=== PATIENT | female | born 2000 | race Caucasian/White ===

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

== ENCOUNTER 2020-01-19 19:41 | Emergency (ER) | payer MEDICAID ==
[~2020-01-19] VITALS: Ht 162.6 cm; Wt 68.0 kg
[2020-01-19 20:13] LABS: BASOPHILS % (AUTO) 1 % (0-10); EOSINOPHILS # (AUTO) 0.2 10^3/uL (0.0-0.3); EOSINOPHILS % (AUTO) 2 % (0-10); HEMATOCRIT 41 % (35-52); HEMOGLOBIN 14.2 G/DL (11.5-16.0); LYMPHOCYTES # (AUTO) 2.9 X 10^3 (1.0-4.0); LYMPHOCYTES % (AUTO) 37 % (12-44); MEAN CORPUSCULAR HEMOGLOBIN 29 PG (25-34); MEAN CORPUSCULAR HGB CONC 35 G/DL (32-36); MEAN CORPUSCULAR VOLUME 84 FL (80-99); MEAN PLATELET VOLUME 9.3 FL (7.4-10.4); MONOCYTES # (AUTO) 0.6 X 10^3 (0.0-1.0); MONOCYTES % (AUTO) 7 % (0-12); NEUTROPHILS # (AUTO) 4.1 X 10^3 (1.8-7.8); NEUTROPHILS % (AUTO) 53 % (42-75); PLATELET COUNT 251 10^3/uL (130-400); RED CELL DISTRIBUTION WIDTH 12.6 % (10.0-14.5); WHITE BLOOD COUNT 7.7 10^3/uL (4.3-11.0)
[2020-01-19] MEDS ORDERED: ONDANSETRON 4 MG/2 ML (SDV) Z0FRAN IVP ONE (20:15)
[2020-01-19 20:27] LABS: BILIRUBIN,URINE NEGATIVE (NEGATIVE); CLARITY,URINE CLEAR; COLOR,URINE YELLOW; GLUCOSE, URINE (UA) NEGATIVE (NEGATIVE); KETONES,URINE TRACE (NEGATIVE); LEUKOCYTE ESTERASE ,URINE TRACE (NEGATIVE); NITRITE,URINE NEGATIVE (NEGATIVE); PROTEIN,URINE NEGATIVE (NEGATIVE)
[2020-01-19 20:34] LABS: BACTERIA,URINE TRACE /HPF; RBC,URINE RARE /HPF
--- NOTE | 2020-01-19 20:44 | ED Abdominal Pain ---
General Chief Complaint: Abdominal/GI Problems Stated Complaint: DIZZINESS, NAUSEA, CHILLS Nursing Triage Note: Pt ambulates to room #7 with c/o abd discomfort, nausea, chills, et dizziness. Pt reports approx 1.5hr ago, she began to experience discomfort. Pt reports she passed a bowl movement shortly after discomfort began. A&OX4. Sepsis Screen: No Definite Risk Source of Information: Patient Exam Limitations: No Limitations History of Present Illness Date Seen by Provider: Jan 19, 2020 Time Seen by Provider: 19:49 Initial Comments This 19 year old young lady presents to the ER with complaints of RUQ and epigastric pain that started in our to after eating pizza tonight. She went to the restroom have a bowel movement hoping that would help. The bowel movement was relatively normal but did not relieve her pain. She felt a little dizzy during the bowel movement. She also complains of some mild nausea. She has not had any prior episodes. She felt a little chilled but has no fever. She denies any urinary symptoms. Reports LMP was 2 weeks ago. Allergies and Home Medications Allergies Coded Allergies: promethazine (Verified Allergy, Mild, 10/25/14) Dysphoria levetiracetam (Unverified Adverse Reaction, Mild, rash, 11/08/13) sertraline (Unverified Adverse Reaction, Mild, rash, 11/08/13) Home Medications Oxcarbazepine 600 Mg Tablet, 600 MG PO DAILY, (Reported) Oxcarbazepine 600 Mg Tablet, 1,200 MG PO HS, (Reported) Patient Home Medication List Home Medication List Reviewed: Yes Review of Systems Review of Systems Constitutional: see HPI, chills EENTM: No Symptoms Reported Respiratory: No Symptoms Reported Cardiovascular: See HPI, Other (dizziness) Gastrointestinal: See HPI Genitourinary: No Symptoms Reported Musculoskeletal: no symptoms reported Skin: no symptoms reported Psychiatric/Neurological: No Symptoms Reported Endocrine: No Symptoms Reported Hematologic/Lymphatic: No Symptoms Reported Past Bbvbick-Xkhtod-Uhecpc Hx Past Med/Social Hx: Reviewed Nursing Past Med/Soc Hx Patient Social History Alcohol Use: Denies Use Recreational Drug Use: No Smoking Status: Never a Smoker 2nd Hand Smoke Exposure: Yes Recent Foreign Travel: No Contact w/Someone Who Travel: No Recent Infectious Disease Expo: No Recent Hopitalizations: No Immunizations Up To Date Tetanus Booster (TDap): Less than 5yrs PED Vaccines UTD: Yes Seasonal Allergies Seasonal Allergies: Yes Past Medical History Surgeries: Yes (BMT'S) Ear Surgery Respiratory: No Cardiac: No Neurological: Yes Seizure Disorder Last Menstrual Period: Jan 05, 2020 Reproductive Disorders: No Female Reproductive Disorders: Denies Sexually Transmitted Disease: No HIV/AIDS: No Genitourinary: Yes UTI-Chronic Gastrointestinal: No Musculoskeletal: Yes (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 ) Back Injury Endocrine: No HEENT: Yes Chronic Ear Infection Cancer: No Psychosocial: Yes (OCD, GENERALIZED ANXIETY DISORDER) Anxiety Integumentary: No Blood Disorders: No Family Medical History No Pertinent Family Hx Physical Exam Vital Signs Vital Signs - First Documented 01/19/20 19:50 Temp 36.7 Pulse 87 Resp 18 B/P (MAP) 132/74 (93) Pulse Ox 100 O2 Delivery Room Air Capillary Refill : Less Than 3 Seconds Height/Weight/BMI Height: 5'3.00" Weight: 140lbs. 0oz. [id number]; 25.00 BMI Method:Actual General Appearance: WD/WN, no apparent distress HEENT: PERRL/EOMI, normal ENT inspection, other (oropharynx somewhat dry) Neck: normal inspection Respiratory: lungs clear, normal breath sounds, no respiratory distress, no accessory muscle use Cardiovascular: regular rate, rhythm, no edema, no murmur Gastrointestinal: normal bowel sounds, soft, tenderness (Quigley right upper quadrant. 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 II-XII nml as tested, no motor/sensory deficits, alert, normal mood/affect, oriented x 3 Skin: normal color, warm/dry Progress/Results/Core Measures Results/Orders Lab Results Laboratory Tests Test 01/19/20 20:05 01/19/20 20:20 Range/Units White Blood Count 7.7 4.3-11.0 10^3/uL Red Blood Count 4.88 4.35-5.85 10^6/uL Hemoglobin 14.2 11.5-16.0 G/DL Hematocrit 41 35-52 % Mean Corpuscular Volume 84 80-99 FL Mean Corpuscular Hemoglobin 29 25-34 PG Mean Corpuscular Hemoglobin Concent 35 32-36 G/DL Red Cell Distribution Width 12.6 10.0-14.5 % Platelet Count 251 130-400 10^3/uL Mean Platelet Volume 9.3 7.4-10.4 FL Neutrophils (%) (Auto) 53 42-75 % Lymphocytes (%) (Auto) 37 12-44 % Monocytes (%) (Auto) 7 0-12 % Eosinophils (%) (Auto) 2 0-10 % Basophils (%) (Auto) 1 0-10 % Neutrophils # (Auto) 4.1 1.8-7.8 X 10^3 Lymphocytes # (Auto) 2.9 1.0-4.0 X 10^3 Monocytes # (Auto) 0.6 0.0-1.0 X 10^3 Eosinophils # (Auto) 0.2 0.0-0.3 10^3/uL Basophils # (Auto) 0.0 0.0-0.1 10^3/uL Sodium Level 139 135-145 MMOL/L Potassium Level 3.8 3.6-5.0 MMOL/L Chloride Level 106 98-107 MMOL/L Carbon Dioxide Level 22 21-32 MMOL/L Anion Gap 11 5-14 MMOL/L Blood Urea Nitrogen 10 7-18 MG/DL Creatinine 0.81 0.60-1.30 MG/DL Estimat Glomerular Filtration Rate > 60 BUN/Creatinine Ratio 12 Glucose Level 97 70-105 MG/DL Calcium Level 9.6 8.5-10.1 MG/DL Corrected Calcium 8.5-10.1 MG/DL Total Bilirubin 0.3 0.1-1.0 MG/DL Aspartate Amino Transf (AST/SGOT) 22 5-34 U/L Alanine Aminotransferase (ALT/SGPT) 13 0-55 U/L Alkaline Phosphatase 76 40-136 U/L C-Reactive Protein High Sensitivity 0.04 0.00-0.50 MG/DL Total Protein 8.1 6.4-8.2 GM/DL Albumin 4.6 H 3.2-4.5 GM/DL Lipase 35 8-78 U/L Serum Test, Qualitative NEGATIVE NEGATIVE Urine Color YELLOW Urine Clarity CLEAR Urine pH 6.0 5-9 Urine Specific [place] 1.025 H 1.016-1.022 Urine Protein NEGATIVE NEGATIVE Urine Glucose (UA) NEGATIVE NEGATIVE Urine Ketones TRACE H NEGATIVE Urine Nitrite NEGATIVE NEGATIVE Urine Bilirubin NEGATIVE NEGATIVE Urine Urobilinogen 0.2 < = 1.0 MG/DL Urine Leukocyte Esterase TRACE H NEGATIVE Urine RBC (Auto) NEGATIVE NEGATIVE Urine RBC RARE /HPF Urine WBC 2-5 /HPF Urine Squamous Epithelial Cells 5-10 /HPF Urine Crystals NONE /LPF Urine Bacteria TRACE /HPF Urine Casts NONE /LPF Urine Mucus NEGATIVE /LPF Urine Culture Indicated YES My Orders Orders - IRVIN MCLEAN MD Ua Culture If Indicated (01/19/20 19:49) Cbc With Automated Diff (01/19/20 20:02) Comprehensive Metabolic Panel (01/19/20 20:02) Hs C Reactive Protein (01/19/20 20:02) Hcg,Qualitative Serum (01/19/20 20:02) Lipase (01/19/20 20:02) Ondansetron Injection (Zofran Injectio (01/19/20 20:15) Urine Culture (01/19/20 20:20) Ketorolac Injection (Toradol Injection) (01/19/20 21:15) Medications Given in ED Current Medications Medications Dose Ordered Sig/Vick Route Start Time Stop Time Status Last Admin Dose Admin Ketorolac Tromethamine 15 mg ONCE ONCE IVP 01/19/20 21:15 01/19/20 21:16 DC 01/19/20 21:14 15 MG Ondansetron HCl 4 mg ONCE ONCE IVP 01/19/20 20:15 01/19/20 20:16 DC 01/19/20 20:13 4 MG Vital Signs/I&O 01/19/20 19:50 Temp 36.7 Pulse 87 Resp 18 B/P (MAP) 132/74 (93) Pulse Ox 100 O2 Delivery Room Air Blood Pressure Mean: 93 Progress Progress Note #1: Time: 20:46 Progress Note Patient was seen and examined upon arrival. She is being treated with Zofran and IV fluids. Progress Note #2: Progress Note Workup was unremarkable. Symptoms improved but she had a little bit of residual pain. Toradol was given before discharge. Departure Impression Primary Impression: Right upper quadrant pain Additional Impression: Nausea Disposition: 01 HOME, SELF-CARE Condition: Improved Departure-Patient Inst. Decision time for Depature: 21:09 Referrals: NHAN LOWE MD (PCP/Family) Primary Care Physician Patient Instructions: Severe Abdominal Pain, Adult (DC) Add. Discharge Instructions: Stick with a clear liquid diet this evening. Tomorrow you may gradually advance your diet with small quantities of bland food. Eat a low fat, low oil diet until follow-up with your doctor. Follow-up with your Dr. as soon as possible and discuss the possibility of a gallbladder ultrasound. Return to the ER if you have worsening symptoms including escalating pain, vomiting, fever, etc. For pain you may take Tylenol (acetaminophen) up to 1000 mg every 6 hours as needed. If you need to return to the emergency room for right upper belly pain outside of business hours, consider returning to an ER that can provide 24-hour ultrasound services such as one of the [facility]. All discharge instructions reviewed with patient and/or family. Voiced understanding. Copy Copies To 1: NHAN LOWE MD, JOSHUA T MD Jan 19, 2020 20:44
[2020-01-19 20:47] LABS: ALANINE AMINOTRANSFERASE 13 U/L (0-55); ALBUMIN 4.6 GM/DL (3.2-4.5); ALKALINE PHOSPHATASE 76 U/L (40-136); BILIRUBIN,TOTAL 0.3 MG/DL (0.1-1.0); BUN/CREATININE RATIO 12; CALCIUM 9.6 MG/DL (8.5-10.1); CARBON DIOXIDE 22 MMOL/L (21-32); CHLORIDE 106 MMOL/L (98-107); CREATININE SERUM 0.81 MG/DL (0.60-1.30); GFR ESTIMATED > 60; GLUCOSE 97 MG/DL (70-105); LIPASE 35 U/L (8-78); POTASSIUM 3.8 MMOL/L (3.6-5.0); SODIUM 139 MMOL/L (135-145); TOTAL PROTEIN 8.1 GM/DL (6.4-8.2)
[2020-01-19] MEDS ORDERED: KETOROLAC 30 MG/ML VIAL IVP ONE (21:15)
[2020-01-19 21:19] VITALS: BP 113/79
== END 2020-01-19 21:19 | disposition home or self-care (01) ==
LOC: EDUNIT# 19:41 → ER 19:43
DX: R10.11 Right upper quadrant pain (principal); R11.2 Nausea with vomiting, unspecified; G40.909 Epilepsy, unspecified, not intractable, without status epilepticus; F42.9 Obsessive-compulsive disorder, unspecified; F41.1 Generalized anxiety disorder; Z88.8 Allergy status to other drugs, medicaments and biological substances
CPT/HCPCS: 36415; 80053; 81000; 83690; 84703; 85025; 86141; 87088

== ENCOUNTER → 2020-02-02 | Outpatient (CLI) | payer MEDICAID ==
[~2020-02-02] MED LIST changes: +CATHETER FLUSH 10 ML SYR IV PRN
--- NOTE | 2020-02-02 14:21 | Diagnostic Imaging Report ---
INDICATION: Abdominal pain and bloating. TECHNIQUE: The patient was administered 5.3 mCi technetium 99m Choletec intravenously and imaging over the abdomen was performed. At 1 hour 8 ounces of Ensure was ingested and a gallbladder ejection fraction was calculated. There is homogeneous uptake of activity by the liver with prompt excretion of activity into the gallbladder and common duct. There is normal passage of activity into the small bowel. Gallbladder ejection fraction is abnormally low at 12%. Normal values are 30% or greater. IMPRESSION: 1. Patent cystic duct and common bile duct. 2. Low gallbladder ejection fraction of 12%. Dictated by: Dictated on workstation # [id number]
== END ==
LOC: CARD 11:10
PROVIDERS: ATTEND Surgery
DX: R10.9 Unspecified abdominal pain (principal); R14.0 Abdominal distension (gaseous); R11.2 Nausea with vomiting, unspecified
CPT/HCPCS: 78227; A9537

== ENCOUNTER 2020-06-19 00:29 | Emergency (ER) | payer MEDICAID ==
[~2020-06-19] VITALS: Ht 162.6 cm; Wt 68.0 kg
[~2020-06-19 00:29] MED LIST changes: -CATHETER FLUSH 10 ML SYR IV PRN
[2020-06-19 00:52] LABS: BILIRUBIN,URINE NEGATIVE (NEGATIVE); CLARITY,URINE SL CLOUDY; COLOR,URINE YELLOW; GLUCOSE, URINE (UA) NEGATIVE (NEGATIVE); KETONES,URINE NEGATIVE (NEGATIVE); LEUKOCYTE ESTERASE ,URINE NEGATIVE (NEGATIVE); NITRITE,URINE NEGATIVE (NEGATIVE); PH,URINE 6.5 (5-9); PROTEIN,URINE TRACE (NEGATIVE)
[2020-06-19 01:03] LABS: BACTERIA,URINE TRACE /HPF
[2020-06-19] MEDS ORDERED: ONDANSETRON 4 MG/2 ML (SDV) Z0FRAN ONE (01:09)
[2020-06-19] MEDS ORDERED: ONDANSETRON 4 MG/2 ML (SDV) Z0FRAN IVP ONE (01:15)
[2020-06-19 01:16] LABS: AMPHETAMINE SCREEN, URINE NEGATIVE (NEGATIVE); BARBITURATE SCREEN URINE NEGATIVE (NEGATIVE); BENZODIAZEPINES SCREEN URINE NEGATIVE (NEGATIVE); CANNABINOID SCREEN, URINE NEGATIVE (NEGATIVE); COCAINE SCREEN URINE NEGATIVE (NEGATIVE); METHADONE STAT NEGATIVE (NEGATIVE); METHAMPHETAMINE SCREEN URINE S NEGATIVE (NEGATIVE); OPIATE SCREEN URINE NEGATIVE (NEGATIVE); OXYCODONE STAT NEGATIVE (NEGATIVE); PROPOXYPHENE STAT NEGATIVE (NEGATIVE); TRICYCLIC ANTIDEPRESSANTS SCRE NEGATIVE (NEGATIVE)
--- NOTE | 2020-06-19 01:38 | ED General ---
General Chief Complaint: Neurological Problems Stated Complaint: SEIZURE Nursing Triage Note: brought in by [facility] c/o approx. 15sec. seizure. pt with hx seizures Source of Information: Patient, EMS History of Present Illness Date Seen by Provider: Jun 19, 2020 Time Seen by Provider: 00:28 Initial Comments PT ARRIVES VIA EMS FROM HOME PT HAD A 15 SECOND SEIZURE, WITNESSED BY BOYFRIEND. PT HAS LONGSTANDING HISTORY OF SEIZURES, AND LAST SEIZURE WAS 2 YEARS AGO. DENIES ANY MISSED DOSES OF MEDICATIONS AND NO CHANGES IN MEDICATIONS PT STATES SHE WAS ASLEEP IN BED WHEN SEIZURE OCCURRED, BUT HER BOYFRIEND SAW IT. PT DENIES ANY INJURY FROM THE SEIZURE SEIZURE IS NO DIFFERENT FROM PREVIOUS SEIZURES. DID BECOME NAUSEATED AND VOMITED AFTER THE SEIZURE, IS TYPICAL FOR HER. IS STILL NAUSEATED. PT THEN STATES SHE IS NOT HERE FOR THE SEIZURE, AND IS NOT CONCERNED ABOUT IT. CALLED EMS BECAUSE SHE WANTED TO BE TESTED FOR COVID-19. PT STATES SHE HAS HAD NASAL CONGESTION FOR THE LAST 2 DAYS STATES IMMEDIATELY AFTER THE SEIZURE SHE HAD TEMP OF 100, BUT HAS NOT HAD FEVER AT ANY OTHER TIME HAS NOT TAKEN ANYTHING FOR FEVER. NO COUGH OR SHORTNESS OF BREATH NO SORE THROAT NO LOSS OF TASTE OR SMELL NO GI SYMPTOMS PRIOR TO SEIZURE. NO HEADACHE NO BODY ACHES NO KNOWN SICK CONTACTS OR EXPOSURE TO COVID-19 PT DOES NOT WORK. LMP 4 WEEKS AGO. NORMAL. NO CONTROL PCP: DR. Chacorta LOWE NEUROLOGIST AT [facility] Allergies and Home Medications Allergies Coded Allergies: promethazine (Verified Allergy, Mild, 10/25/14) Dysphoria levetiracetam (Unverified Adverse Reaction, Mild, rash, 11/08/13) sertraline (Unverified Adverse Reaction, Mild, rash, 11/08/13) Home Medications Oxcarbazepine 600 Mg Tablet, 600 MG PO DAILY, (Reported) Oxcarbazepine 600 Mg Tablet, 1,200 MG PO HS, (Reported) Patient Home Medication List Home Medication List Reviewed: Yes Review of Systems Review of Systems Constitutional: see HPI, fever EENTM: see HPI, nose congestion; No ear pain, No throat pain Respiratory: no symptoms reported; No cough, No short of breath Cardiovascular: no symptoms reported Gastrointestinal: see HPI; No abdominal pain, No diarrhea; nausea, vomiting Genitourinary: no symptoms reported : No LMP: May 21, 2020 Musculoskeletal: no symptoms reported Skin: no symptoms reported Psychiatric/Neurological: See HPI; Denies Headache, Denies Numbness, Denies Paresthesia; Seizure; Denies Tingling, Denies Weakness Hematologic/Lymphatic: No Symptoms Reported Immunological/Allergic: no symptoms reported Past Pqprvfl-Kbxqri-Qfvsxe Hx Past Med/Social Hx: Reviewed and Corrections made Patient Social History Alcohol Use: Denies Use Recreational Drug Use: No Smoking Status: Never a Smoker 2nd Hand Smoke Exposure: Yes Recent Foreign Travel: No Contact w/Someone Who Travel: No Recent Infectious Disease Expo: No Recent Hopitalizations: No Immunizations Up To Date Tetanus Booster (TDap): Less than 5yrs PED Vaccines UTD: Yes Seasonal Allergies Seasonal Allergies: Yes Past Medical History Surgeries: Yes (BMT'S) Ear Surgery, Gallbladder Respiratory: No Cardiac: No Neurological: Yes Seizure Disorder Reproductive Disorders: No Female Reproductive Disorders: Denies Sexually Transmitted Disease: No HIV/AIDS: No Genitourinary: Yes UTI-Chronic Gastrointestinal: Yes (S/P CHOLECYSTECTOMY) Gall Bladder Disease Musculoskeletal: Yes (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 ) Back Injury Endocrine: No HEENT: Yes (S/P BMT'S) Chronic Ear Infection Cancer: No Psychosocial: Yes (OCD, GENERALIZED ANXIETY DISORDER;"BAD ANGER PROBLEMS" ) Anxiety Integumentary: No Blood Disorders: No Family Medical History No Pertinent Family Hx Physical Exam Vital Signs Vital Signs - First Documented 06/19/20 00:30 Temp 36.5 Pulse 104 Resp 20 B/P (MAP) 118/73 O2 Delivery Room Air Capillary Refill : Height, Weight, BMI Height: 5'3.00" Weight: 140lbs. 0oz. 63.740185oc; 25.00 BMI Method:Actual General Appearance: No Apparent Distress, WD/WN, Other (DOES NOT APPEAR POST- ICTAL. PT SITTING UP, AWAKE, ALERT, TALKING. SPEECH CLEAR. ) HEENT: PERRL/EOMI, Pharynx Normal, Other (TM'S SCLEROTIC. 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 Norm as Tested Skin: Normal Color, Warm/Dry; No Rash Progress/Results/Core Measures Suspected Sepsis SIRS Temperature: Pulse: Respiratory Rate: Blood Pressure / Mean: Results/Orders Lab Results Laboratory Tests Test 06/19/20 00:33 06/19/20 00:40 Range/Units Coronavirus 2019 (ANGELITA) Negative Negative Monoscreen NEGATIVE NEGATIVE Urine Color YELLOW Urine Clarity SL CLOUDY Urine pH 6.5 5-9 Urine Specific [place] >=1.030 1.016-1.022 Urine Protein TRACE H NEGATIVE Urine Glucose (UA) NEGATIVE NEGATIVE Urine Ketones NEGATIVE NEGATIVE Urine Nitrite NEGATIVE NEGATIVE Urine Bilirubin NEGATIVE NEGATIVE Urine Urobilinogen 0.2 < = 1.0 MG/DL Urine Leukocyte Esterase NEGATIVE NEGATIVE Urine RBC (Auto) NEGATIVE NEGATIVE Urine RBC NONE /HPF Urine WBC NONE /HPF Urine Squamous Epithelial Cells 10-25 H /HPF Urine Crystals NONE /LPF Urine Bacteria TRACE /HPF Urine Casts NONE /LPF Urine Mucus LARGE H /LPF Urine Culture Indicated NO Urine Opiates Screen NEGATIVE NEGATIVE Urine Oxycodone Screen NEGATIVE NEGATIVE Urine Methadone Screen NEGATIVE NEGATIVE Urine Propoxyphene Screen NEGATIVE NEGATIVE Urine Barbiturates Screen NEGATIVE NEGATIVE Ur Tricyclic Antidepressants Screen NEGATIVE NEGATIVE Urine Phencyclidine Screen NEGATIVE NEGATIVE Urine Amphetamines Screen NEGATIVE NEGATIVE Urine Methamphetamines Screen NEGATIVE NEGATIVE Urine Benzodiazepines Screen NEGATIVE NEGATIVE Urine Cocaine Screen NEGATIVE NEGATIVE Urine Cannabinoids Screen NEGATIVE NEGATIVE Group A Streptococcus Screen NEGATIVE NEGATIVE Micro Results Microbiology 06/19/20 Influenza Types A,B Antigen (ACE) - Final, Complete My Orders Orders - VANESSA EISENBERG DO Urine Bedside (06/19/20 00:38) Monitor-Rhythm Ecg Trace Only (06/19/20 00:38) Drug Screen Stat (Urine) (06/19/20 00:38) Monotest (06/19/20 00:38) Rapid Strep A Screen (06/19/20 00:38) Ua Culture If Indicated (06/19/20 00:38) Influenza A And B Antigens (06/19/20 00:38) Coronavirus Sars-Cov-2 So 2018 (06/19/20 00:38) Covid 19 Inhouse Test (06/19/20 00:38) Ondansetron Injection (Zofran Injectio (06/19/20 01:15) Ondansetron Injection (Zofran Injectio (06/19/20 01:09) Medications Given in ED Current Medications Medications Dose Ordered Sig/Vick Route Start Time Stop Time Status Last Admin Dose Admin Ondansetron HCl 4 mg ONCE ONCE IVP 06/19/20 01:15 06/19/20 01:16 DC 06/19/20 01:13 4 MG Vital Signs/I&O 06/19/20 00:30 Temp 36.5 Pulse 104 Resp 20 B/P (MAP) 118/73 O2 Delivery Room Air Capillary Refill : Progress Note : Progress Note PLACED IN ISOLATION ROOM PPE WORN AT ALL TIMES COVID-19 TESTING PERFORMED PT ADVISED OF NEED FOR QUARANTINE UNEVENTFUL ER STAY PT SLEPT THROUGH MOST OF ER STAY. PT AMBULATES OUT OF ER ON HER OWN WITHOUT DIFFICULTY Departure Impression Primary Impression: Person under investigation for COVID-19 Additional Impression: Seizure disorder Disposition: HOME, SELF-CARE Condition: Stable Departure-Patient Inst. Referrals: NHAN LOWE MD (PCP/Family) Primary Care Physician Patient Instructions: Coronavirus Disease 2019 (COVID-19) (DC), Preventing the Spread of an Infectious Disease, Seizures, Adult (DC) Add. Discharge Instructions: NO DRIVING FOR A MINIMUM OF 6 MONTHS AND NEED CLEARANCE FROM YOUR NEUROLOGIST CONTINUE YOUR CURRENT MEDICATIONS PRESCRIBED TYLENOL AND MOTRIN NEEDED FOR PAIN OR FEVER LOTS OF CLEAR LIQUIDS OVER THE COUNTER MEDICATIONS SUCH CLARITIN AND FLONASE FOR YOUR NASAL CONGESTION QUARANTINE YOURSELF, ALL HOUSEHOLD MEMBERS AND CLOSE CONTACTS FOR 2 WEEKS OR UNTIL CLEARED BY YOUR DR OR HEALTH DEPT FOLLOW UP WITH YOUR DR IN 3-4 DAYS IF NO BETTER, YOU MAY NEED REPEAT COVID-19 TESTING IN A FEW DAYS IF YOU ARE STILL HAVING SYMPTOMS All discharge instructions reviewed with patient and/or family. Voiced understanding. VANESSA EISENBERG DO Jun 19, 2020 01:38
== END 2020-06-19 01:51 | disposition home or self-care (01) ==
LOC: EDUNIT# 00:29 → ER 00:30
DX: G40.909 Epilepsy, unspecified, not intractable, without status epilepticus (principal); Z20.828 Contact with and (suspected) exposure to other viral communicable diseases; Z77.22 Contact with and (suspected) exposure to environmental tobacco smoke (acute) (chronic); Z88.8 Allergy status to other drugs, medicaments and biological substances
CPT/HCPCS: 80306; 81000; 84703; 86308; 87430; 87804; 93041; 99283; U0002; 36415; 87635

== ENCOUNTER 2020-08-17 10:42 | Emergency (ER) | payer MEDICAID ==
[~2020-08-17] VITALS: Ht 162.5 cm; Wt 63.5 kg
[2020-08-17 11:26] LABS: BILIRUBIN,URINE NEGATIVE (NEGATIVE); CLARITY,URINE SL CLOUDY; COLOR,URINE YELLOW; GLUCOSE, URINE (UA) NEGATIVE (NEGATIVE); KETONES,URINE NEGATIVE (NEGATIVE); LEUKOCYTE ESTERASE ,URINE NEGATIVE (NEGATIVE); NITRITE,URINE NEGATIVE (NEGATIVE); PROTEIN,URINE NEGATIVE (NEGATIVE)
--- NOTE | 2020-08-17 11:49 | ED Back Pain ---
General Chief Complaint: Back Problems Stated Complaint: BACK PAIN Nursing Triage Note: PT AMB TO TRIAGE WITH COMPLAINT OF BACK PAIN. STATES WOKE UP THIS MORNING IN PAIN. UNKNOWN CAUSE OF PAIN. DENIES URINARY SYMPTOMS. Source of Information: Patient Exam Limitations: No Limitations History of Present Illness Date Seen by Provider: Aug 17, 2020 Time Seen by Provider: 11:37 Initial Comments Patient presents ER by private conveyance with chief complaint of back pain that started this morning after she woke up. No strenuous lifting, falls or trauma recently. She says she fell out of a tree when she was in sixth grade and had a fracture of T4 and T5. She does not routinely have a lot of back pain. The pain does not radiate anywhere and starts in her low spine and stays midline. She is not having any burning when she urinates fevers chills nausea or vomiting. She is not having saddle anesthesia, numbness weakness or difficulty walking. No loss of control of bowel and/or bladder and/or hesitancy. LMP completed yesterday. She took 400 mg of ibuprofen this morning and a nap and when she woke up the pain was worse. She rates it as an 8 out of 10. Allergies and Home Medications Allergies Coded Allergies: promethazine (Verified Allergy, Mild, 10/25/14) Dysphoria levetiracetam (Unverified Adverse Reaction, Mild, rash, 11/08/13) sertraline (Unverified Adverse Reaction, Mild, rash, 11/08/13) Home Medications Oxcarbazepine 600 Mg Tablet, 600 MG PO DAILY, (Reported) Oxcarbazepine 600 Mg Tablet, 1,200 MG PO HS, (Reported) Patient Home Medication List Home Medication List Reviewed: Yes Review of Systems Constitutional: No chills, No diaphoresis EENTM: No ear discharge, No ear pain Respiratory: No cough, No short of breath Cardiovascular: No Hx of Intervention, No palpitations Gastrointestinal: No abdominal pain, No nausea Genitourinary: No discharge, No dysuria : No (Negative bedside today) Musculoskeletal: see HPI, back pain; No joint pain Past Murslad-Kfjbfq-Czhntw Hx Patient Social History Alcohol Use: Denies Use Smoking Status: Never a Smoker 2nd Hand Smoke Exposure: Yes Recent Infectious Disease Expo: No Recent Hopitalizations: No Ebola Symptoms: Denies Symptoms Listed Immunizations Up To Date Tetanus Booster (TDap): Less than 5yrs PED Vaccines UTD: Yes Seasonal Allergies Seasonal Allergies: Yes Past Medical History Surgeries: Yes (BMT'S) Ear Surgery, Gallbladder Respiratory: No Cardiac: No Neurological: Yes Seizure Disorder Reproductive Disorders: No Female Reproductive Disorders: Denies Sexually Transmitted Disease: No HIV/AIDS: No Genitourinary: Yes UTI-Chronic Gastrointestinal: Yes (S/P CHOLECYSTECTOMY) Gall Bladder Disease Musculoskeletal: Yes (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 ) Back Injury Endocrine: No HEENT: Yes (S/P BMT'S) Chronic Ear Infection Cancer: No Psychosocial: Yes (OCD, GENERALIZED ANXIETY DISORDER;"BAD ANGER PROBLEMS" ) Anxiety Integumentary: No Blood Disorders: No Family Medical History No Pertinent Family Hx Physical Exam Vital Signs Vital Signs - First Documented 08/17/20 11:04 Temp 36.9 Pulse 86 Resp 17 B/P (MAP) 119/81 Pulse Ox 99 O2 Delivery Room Air Capillary Refill : Height, Weight, BMI Height: 5'3.00" Weight: 140lbs. 0oz. 63.209689zz; 24.00 BMI Method:Actual General Appearance: No Apparent Distress, WD/WN HEENT: PERRL/EOMI, Pharynx Normal, Moist Mucous Membranes Neck: Full Range of Motion, Normal Inspection Cardiovascular: Regular Rate, Rhythm, No Edema, Normal Peripheral Pulses Respiratory: No Accessory Muscle Use, No Respiratory Distress Back: Normal Inspection, No CVA Tenderness, Muscle Spasm (Bilateral paraspinous lumbar), Vertebral Tenderness (Lumbar) Extremity: Normal Capillary Refill, Normal Inspection Neurologic/Psychiatric: Alert, Oriented x3 Skin: Normal Color, Warm/Dry Progress/Results/Core Measures Results/Orders Lab Results Laboratory Tests Test 08/17/20 11:18 Range/Units Urine Color YELLOW Urine Clarity SL CLOUDY Urine pH 7.0 5-9 Urine Specific [place] 1.020 1.016-1.022 Urine Protein NEGATIVE NEGATIVE Urine Glucose (UA) NEGATIVE NEGATIVE Urine Ketones NEGATIVE NEGATIVE Urine Nitrite NEGATIVE NEGATIVE Urine Bilirubin NEGATIVE NEGATIVE Urine Urobilinogen 0.2 < = 1.0 MG/DL Urine Leukocyte Esterase NEGATIVE NEGATIVE Urine RBC (Auto) TRACE-I NEGATIVE Urine RBC RARE /HPF Urine WBC NONE /HPF Urine Crystals NONE /LPF Urine Bacteria TRACE /HPF Urine Casts NONE /LPF Urine Mucus NEGATIVE /LPF Urine Culture Indicated NO My Orders Orders - SAMIR HERNANDEZ Ua Culture If Indicated (08/17/20 10:46) Urine Bedside (08/17/20 10:46) Vital Signs/I&O 08/17/20 11:04 Temp 36.9 Pulse 86 Resp 17 B/P (MAP) 119/81 Pulse Ox 99 O2 Delivery Room Air Progress Progress Note : Time: 11:46 Progress Note Acute, nontraumatic low back pain midline nonradiating. Likely it is lumbago however we will get a urinalysis. Urine screen is negative. No history of kidney stones. If the urine is clean we will give her Toradol, muscle relaxants and encouraged her to get conservative care for this. She does have Nhan Lowe she can follow-up with if she is not seeing improvement. Return precautions discussed. Departure Impression Primary Impression: Lumbago Qualified Codes: M54.5 - Low back pain Disposition: 01 HOME, SELF-CARE Condition: Stable Departure-Patient Inst. Decision time for Depature: 12:00 Referrals: NHAN LOWE MD (PCP/Family) Primary Care Physician Patient Instructions: Back Exercises, Low Back Pain (DC) Add. Discharge Instructions: Expect to see improvement over the next week and symptoms should resolve in the first couple weeks. If it is not improving over the next week then follow-up with Dr. Lowe in the clinic for further management of your symptoms. We have given you a shot of Toradol which should cover you till about 8:00 tonight. This will reduce pain and start the anti-inflammatory process to get your back healing sooner. We are going to start you on naproxen 1 tablet, 500 mg twice a day for the next 1 to 2 weeks until your symptoms are improving. Flexeril/cyclobenzaprine as a muscle relaxant to be taken upwards of 3 times a day as necessary for muscle spasms. It will cause drowsiness. Topical creams such as icy hot or Biofreeze can be helpful. Ice for the first couple days to the part that hurts. Heating pads can be helpful for low back pain. Return to the ER promptly if you are having difficulty urinating having bowel movements, numbness or weakness causing falls. You may consult with chiropractors or if your symptoms are not improving over the next week or 2 you may also call [facility] physical therapy and set up a no upfront cost evaluation at [phone]. If this becomes more of a routine problem then you should invest in a $20 back brace from the pharmacy and wear it on the days that it helps. All discharge instructions reviewed with patient and/or family. Voiced understanding. Scripts Naproxen (Naprosyn) 500 Mg Tablet 500 MG PO BID for 14 Days, #30 TAB 0 Refills Prov: SAMIR HERNANDEZ 08/17/20 Cyclobenzaprine HCl (Cyclobenzaprine HCl) 10 Mg Tablet 10 MG PO TID PRN for SPASMS, #15 TAB 0 Refills Prov: SAMIR HERNANDEZ 08/17/20 Work/School Note: Work Release Form Date Seen in the Emergency Department: F 2020 Return to Work: Aug 18, 2020 Restrictions: Need Release from Doctor Other Restrictions Listed Below: No lifting, pushing, or pulling over 20# until 08/24/20. SAMIR HERNANDEZ Aug 17, 2020 11:49
[2020-08-17 11:56] LABS: BACTERIA,URINE TRACE /HPF; RBC,URINE RARE /HPF
[2020-08-17] MEDS ORDERED: KETOROLAC 60 MG/2 ML VIAL IM ONE (12:00)
[2020-08-17] MEDS ORDERED: CYCL10TA9 PO (12:07)
[2020-08-17] MEDS ORDERED: NAPR-1071 PO (12:07)
== END 2020-08-17 12:16 | disposition home or self-care (01) ==
LOC: EDUNIT# 10:42 → ER 10:45
DX: M54.5 Low back pain (principal); G40.909 Epilepsy, unspecified, not intractable, without status epilepticus; Z88.8 Allergy status to other drugs, medicaments and biological substances; Z77.22 Contact with and (suspected) exposure to environmental tobacco smoke (acute) (chronic)
CPT/HCPCS: 81000; 84703; 99284

== ENCOUNTER 2020-10-22 16:57 | Emergency (ER) | payer MEDICAID ==
[~2020-10-22] VITALS: Ht 160 cm; Wt 81.8 kg
[~2020-10-22 16:57] MED LIST changes: +CYCL10TA9 PO; +NAPR-1071 PO
[2020-10-22 17:24] LABS: BASOPHILS # (AUTO) 0.1 10^3/uL (0.0-0.1); BASOPHILS % (AUTO) 1 % (0-10); EOSINOPHILS % (AUTO) 0 % (0-10); HEMATOCRIT 42 % (35-52); HEMOGLOBIN 14.3 g/dL (11.5-16.0); LYMPHOCYTES % (AUTO) 21 % (12-44); MEAN CORPUSCULAR HEMOGLOBIN 29 pg (25-34); MEAN CORPUSCULAR HGB CONC 34 g/dL (32-36); MEAN CORPUSCULAR VOLUME 86 fL (80-99); MEAN PLATELET VOLUME 9.2 fL (9.0-12.2); MONOCYTES # (AUTO) 0.5 10^3/uL (0.0-1.0); MONOCYTES % (AUTO) 6 % (0-12); NEUTROPHILS # (AUTO) 6.6 10^3/uL (1.8-7.8); NEUTROPHILS % (AUTO) 72 % (42-75); PLATELET COUNT 288 10^3/uL (130-400); WHITE BLOOD COUNT 9.2 10^3/uL (4.3-11.0)
[2020-10-22] MEDS ORDERED: ONDANSETRON 4 MG/2 ML (SDV) Z0FRAN IVP ONE (17:30)
[2020-10-22] MEDS ORDERED: NS IV 1000 ML 1,000 ML IV SCH (17:30)
[2020-10-22 17:33] LABS: BILIRUBIN,URINE 1+ (NEGATIVE); CLARITY,URINE CLEAR; COLOR,URINE YELLOW; GLUCOSE, URINE (UA) NEGATIVE (NEGATIVE); KETONES,URINE 1+ (NEGATIVE); LEUKOCYTE ESTERASE ,URINE TRACE (NEGATIVE); NITRITE,URINE NEGATIVE (NEGATIVE); PROTEIN,URINE NEGATIVE (NEGATIVE)
[2020-10-22 17:40] LABS: BACTERIA,URINE NEGATIVE /HPF; WBC,URINE RARE /HPF
[2020-10-22 17:41] LABS: ALANINE AMINOTRANSFERASE 13 U/L (0-55); ALBUMIN 4.7 GM/DL (3.2-4.5); ALKALINE PHOSPHATASE 83 U/L (40-136); BILIRUBIN,TOTAL 0.4 MG/DL (0.1-1.0); BUN/CREATININE RATIO 11; CALCIUM 9.3 MG/DL (8.5-10.1); CARBON DIOXIDE 25 MMOL/L (21-32); CHLORIDE 106 MMOL/L (98-107); CREATININE SERUM 0.82 MG/DL (0.60-1.30); GFR ESTIMATED > 60; GLUCOSE 107 MG/DL (70-105); POTASSIUM 3.8 MMOL/L (3.6-5.0); SODIUM 138 MMOL/L (135-145); TOTAL PROTEIN 8.3 GM/DL (6.4-8.2)
--- NOTE | 2020-10-22 17:47 | ED GI ---
General Chief Complaint: Abdominal/GI Problems Stated Complaint: ABD PAIN, N/V,DIARRHEA Nursing Triage Note: AMB TO ROOM C/O LOW ABD PAIN ONSET THIS AM DENIES URINARY SYMPTOMS. Sepsis Screen: No Definite Risk History of Present Illness Date Seen by Provider: October 22, 2020 Time Seen by Provider: 17:05 Initial Comments 20-year-old female presents for lower abdominal pain with multiple episodes of diarrhea today and associated nausea. No vomiting. Denies chronic history of GI problems. She has not taken any odts-vco-ymduxlu medications for pain or diarrhea. She is mainly requesting something for the nausea at this point. History of previous cholecystectomy, no other abdominal surgeries. Timing/Duration: 4-6 Hours Severity/Quality: Mild Location: Suprapubic Radiation: No Radiation Associated Symptoms: No Fever/Chills, No Heartburn; Nausea/Vomiting Allergies and Home Medications Allergies Coded Allergies: promethazine (Verified Allergy, Mild, 10/25/14) Dysphoria levetiracetam (Unverified Adverse Reaction, Mild, rash, 11/08/13) sertraline (Unverified Adverse Reaction, Mild, rash, 11/08/13) Home Medications Cyclobenzaprine HCl 10 Mg Tablet, 10 MG PO TID PRN for SPASMS Prescribed by: SAMIR HERNANDEZ on 08/17/201206 Naproxen 500 Mg Tablet, 500 MG PO BID Prescribed by: SAMIR HERNANDEZ on 08/17/207 Oxcarbazepine 600 Mg Tablet, 600 MG PO DAILY, (Reported) Oxcarbazepine 600 Mg Tablet, 1,200 MG PO HS, (Reported) Patient Home Medication List Home Medication List Reviewed: Yes Review of Systems Review of Systems Constitutional: no symptoms reported, see HPI Gastrointestinal: See HPI, Abdominal Pain, Diarrhea, Nausea; Denies Rectal Bleeding, Denies Vomiting All Other Systems Reviewed Negative Unless Noted: Yes Past Rycienr-Pqfgaw-Nticxv Hx Past Med/Social Hx: Reviewed Nursing Past Med/Soc Hx Patient Social History Alcohol Use: Denies Use Smoking Status: Never a Smoker 2nd Hand Smoke Exposure: Yes Recent Infectious Disease Expo: No Recent Hopitalizations: No Immunizations Up To Date Tetanus Booster (TDap): Less than 5yrs PED Vaccines UTD: Yes Seasonal Allergies Seasonal Allergies: Yes Past Medical History Surgeries: Yes (BMT'S) Ear Surgery, Gallbladder Respiratory: No Cardiac: No Neurological: Yes Seizure Disorder Reproductive Disorders: No Female Reproductive Disorders: Denies Sexually Transmitted Disease: No HIV/AIDS: No Genitourinary: Yes UTI-Chronic Gastrointestinal: Yes (S/P CHOLECYSTECTOMY) Gall Bladder Disease Musculoskeletal: Yes (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 ) Back Injury Endocrine: No HEENT: Yes (S/P BMT'S) Chronic Ear Infection Cancer: No Psychosocial: Yes (OCD, GENERALIZED ANXIETY DISORDER;"BAD ANGER PROBLEMS" ) Anxiety Integumentary: No Blood Disorders: No Family Medical History No Pertinent Family Hx Physical Exam Vital Signs Vital Signs - First Documented 10/22/20 17:00 Pulse 91 Resp 18 B/P (MAP) 116/77 (90) Pulse Ox 98 O2 Delivery Room Air Capillary Refill : Less Than 3 Seconds Height/Weight/BMI Height: 5'3.00" Weight: 140lbs. 0oz. 63.022303kd; 31.00 BMI Method:Actual General Appearance: WD/WN, no apparent distress HEENT: PERRL/EOMI, normal ENT inspection, TMs normal, pharynx normal Neck: non-tender, full range of motion, supple, normal inspection Respiratory: chest non-tender, lungs clear, normal breath sounds Cardiovascular: normal peripheral pulses, regular rate, rhythm Gastrointestinal: normal bowel sounds, soft; No distended, No guarding, No rebound; tenderness (Mild tenderness in the suprapubic region.) Back: normal inspection, no CVA tenderness Neurologic/Psychiatric: no motor/sensory deficits, alert, normal mood/affect, oriented x 3 Skin: normal color, warm/dry Progress/Results/Core Measures Results/Orders Lab Results Laboratory Tests Test 10/22/20 17:15 10/22/20 17:26 Range/Units White Blood Count 9.2 4.3-11.0 10^3/uL Red Blood Count 4.94 3.80-5.11 10^6/uL Hemoglobin 14.3 11.5-16.0 g/dL Hematocrit 42 35-52 % Mean Corpuscular Volume 86 80-99 fL Mean Corpuscular Hemoglobin 29 25-34 pg Mean Corpuscular Hemoglobin Concent 34 32-36 g/dL Red Cell Distribution Width 12.1 10.0-14.5 % Platelet Count 288 130-400 10^3/uL Mean Platelet Volume 9.2 9.0-12.2 fL Immature Granulocyte % (Auto) 0 % Neutrophils (%) (Auto) 72 42-75 % Lymphocytes (%) (Auto) 21 12-44 % Monocytes (%) (Auto) 6 0-12 % Eosinophils (%) (Auto) 0 0-10 % Basophils (%) (Auto) 1 0-10 % Neutrophils # (Auto) 6.6 1.8-7.8 10^3/uL Lymphocytes # (Auto) 2.0 1.0-4.0 10^3/uL Monocytes # (Auto) 0.5 0.0-1.0 10^3/uL Eosinophils # (Auto) 0.0 0.0-0.3 10^3/uL Basophils # (Auto) 0.1 0.0-0.1 10^3/uL Immature Granulocyte # (Auto) 0.0 0.0-0.1 10^3/uL Sodium Level 138 135-145 MMOL/L Potassium Level 3.8 3.6-5.0 MMOL/L Chloride Level 106 98-107 MMOL/L Carbon Dioxide Level 25 21-32 MMOL/L Anion Gap 7 5-14 MMOL/L Blood Urea Nitrogen 9 7-18 MG/DL Creatinine 0.82 0.60-1.30 MG/DL Estimat Glomerular Filtration Rate > 60 BUN/Creatinine Ratio 11 Glucose Level 107 H 70-105 MG/DL Calcium Level 9.3 8.5-10.1 MG/DL Corrected Calcium 8.5-10.1 MG/DL Total Bilirubin 0.4 0.1-1.0 MG/DL Aspartate Amino Transf (AST/SGOT) 18 5-34 U/L Alanine Aminotransferase (ALT/SGPT) 13 0-55 U/L Alkaline Phosphatase 83 40-136 U/L Total Protein 8.3 H 6.4-8.2 GM/DL Albumin 4.7 H 3.2-4.5 GM/DL Urine Color YELLOW Urine Clarity CLEAR Urine pH 6.0 5-9 Urine Specific [place] 1.025 H 1.016-1.022 Urine Protein NEGATIVE NEGATIVE Urine Glucose (UA) NEGATIVE NEGATIVE Urine Ketones 1+ H NEGATIVE Urine Nitrite NEGATIVE NEGATIVE Urine Bilirubin 1+ H NEGATIVE Urine Urobilinogen 0.2 < = 1.0 MG/DL Urine Leukocyte Esterase TRACE H NEGATIVE Urine RBC (Auto) NEGATIVE NEGATIVE Urine RBC NONE /HPF Urine WBC RARE /HPF Urine Squamous Epithelial Cells 10-25 H /HPF Urine Crystals NONE /LPF Urine Bacteria NEGATIVE /HPF Urine Casts NONE /LPF Urine Mucus MODERATE H /LPF Urine Culture Indicated NO My Orders Orders - JOSE MIGUELMILVIA Cbc With Automated Diff (10/22/20 16:59) Comprehensive Metabolic Panel (10/22/20 16:59) Ua Culture If Indicated (10/22/20 16:59) Urine Bedside (10/22/20 16:59) Ed Iv/Invasive Line Start (10/22/20 17:25) Ns Iv 1000 Ml (Sodium Chloride 0.9%) (10/22/20 17:30) Ondansetron Injection (Zofran Injectio (10/22/20 17:30) Medications Given in ED Current Medications Medications Dose Ordered Sig/Vick Route Start Time Stop Time Status Last Admin Dose Admin Ondansetron HCl 4 mg ONCE ONCE IVP 10/22/20 17:30 10/22/20 17:31 DC 10/22/20 17:41 4 MG Vital Signs/I&O 10/22/20 17:00 Pulse 91 Resp 18 B/P (MAP) 116/77 (90) Pulse Ox 98 O2 Delivery Room Air Blood Pressure Mean: 90 Progress Progress Note : Time: 17:05 Progress Note Patient seen and evaluated, will give IV fluids, Zofran 4 mg IV and check labs. 1800 labs all essentially normal, patient reports improvement in her nausea, she has had no vomiting or diarrhea since here. Discharge instructions and return precautions reviewed with her. Departure Impression Primary Impression: Nausea alone Additional Impressions: Diarrhea Qualified Codes: R19.7 - Diarrhea, unspecified Abdominal pain Qualified Codes: R10.30 - Lower abdominal pain, unspecified Disposition: HOME, SELF-CARE Condition: Improved Departure-Patient Inst. Decision time for Depature: 18:00 Referrals: NHAN LOWE MD (PCP/Family) Primary Care Physician Patient Instructions: Gastritis (DC) Add. Discharge Instructions: Clear liquid diet for the next 4 to 6 hours then bland diet as tolerated. Increase water intake, 16 ounces every 3 hours while awake. Use the Zofran every 6-8 hours as needed for nausea. Use an itsd-qhl-oeyokle antidiarrheal as needed. Follow-up with Dr. Lowe if your symptoms are not improving or worsen. Return to the emergency department for new, urgent healthcare problems. All discharge instructions reviewed with patient and/or family. Voiced understanding. Scripts Ondansetron (Ondansetron Odt) 4 Mg Tab.rapdis 4 MG PO Q6H PRN for NAUSEA/VOMITING, #8 TAB 0 Refills Prov: MILVIA GILLESPIE 10/22/20 MILVIA GILLESPIE October 22, 2020 17:47
[2020-10-22] MEDS ORDERED: ONDA4TAB11 PO (18:22)
[2020-10-22 18:43] VITALS: BP 112/73
== END 2020-10-22 18:45 | disposition home or self-care (01) ==
LOC: EDUNIT# 16:57 → ER 16:59
DX: R11.0 Nausea (principal); R19.7 Diarrhea, unspecified; R10.30 Lower abdominal pain, unspecified; G40.909 Epilepsy, unspecified, not intractable, without status epilepticus; Z88.8 Allergy status to other drugs, medicaments and biological substances; Z77.22 Contact with and (suspected) exposure to environmental tobacco smoke (acute) (chronic); Z79.899 Other long term (current) drug therapy
CPT/HCPCS: 36415; 80053; 81000; 84703; 85025

== ENCOUNTER 2020-12-08 18:43 | Emergency (ER) | payer OTHER, MEDICAID ==
[~2020-12-08] VITALS: Ht 162.5 cm; Wt 81.8 kg
[2020-12-08 18:50] VITALS: BP 125/90
[2020-12-08] MEDS ORDERED: ONDANSETRON 4 MG (ZOFRAN) ORAL DISSOLVE TAB PO STA (18:59)
--- NOTE | 2020-12-08 18:59 | ED Headache ---
General Chief Complaint: Head/Cervical Problems Stated Complaint: HEAD INJURY Source: patient Exam Limitations: no limitations History of Present Illness Date Seen by Provider: Dec 08, 2020 Time Seen by Provider: 18:50 Initial Comments Patient is a 20-year-old female who presents to the emergency department today with a chief complaint of headache, nausea and mild dizziness. This is after being at work today and she stood up and hit her head on a large cart. Patient denies any loss of consciousness. She states she hit the left side of her head in the parieto-occipital area. Patient states that this occurred at about 5:00 this evening. 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 Work sent her over for evaluation. Patient states that she was worried about her head injury secondary to a history of seizures for which she takes Trileptal. Her last seizure she states was in 2019. All other review of systems reviewed and negative except as stated above. Severity/Quality: moderate, sharp Location: parietal Associated Symptoms: other (Nausea and dizziness) Allergies and Home Medications Allergies Coded Allergies: promethazine (Verified Allergy, Mild, 10/25/14) Dysphoria levetiracetam (Unverified Adverse Reaction, Mild, rash, 11/08/13) sertraline (Unverified Adverse Reaction, Mild, rash, 11/08/13) Home Medications Cyclobenzaprine HCl 10 Mg Tablet, 10 MG PO TID PRN for SPASMS Prescribed by: SAMIR HERNANDEZ on 08/17/20 1207 Naproxen 500 Mg Tablet, 500 MG PO BID Prescribed by: SAMIR HERNANDEZ on 08/17/20 1207 Ondansetron 4 Mg Tab.rapdis, 4 MG PO Q6H PRN for NAUSEA/VOMITING Prescribed by: MILVIA GILLESPIE on 10/22/20 182 Oxcarbazepine 600 Mg Tablet, 600 MG PO DAILY, (Reported) Oxcarbazepine 600 Mg Tablet, 1,200 MG PO HS, (Reported) Patient Home Medication List Home Medication List Reviewed: Yes Review of Systems Review of Systems Constitutional: see HPI Eyes: No Symptoms Reported Ears, Nose, Mouth, Throat: no symptoms reported Respiratory: no symptoms reported Cardiovascular: no symptoms reported Gastrointestinal: nausea : No Musculoskeletal: no symptoms reported Skin: no symptoms reported Psychiatric/Neurological: Headache All Other Systems Reviewed Negative Unless Noted: Yes Past Lvphwed-Oelcnd-Viugpn Hx Patient Social History 2nd Hand Smoke Exposure: Yes Recent Hopitalizations: No Immunizations Up To Date Tetanus Booster (TDap): Less than 5yrs PED Vaccines UTD: Yes Seasonal Allergies Seasonal Allergies: Yes Past Medical History Surgeries: Yes (BMT'S) Ear Surgery, Gallbladder Respiratory: No Cardiac: No Neurological: Yes Seizure Disorder Reproductive Disorders: No Female Reproductive Disorders: Denies Sexually Transmitted Disease: No HIV/AIDS: No Genitourinary: Yes UTI-Chronic Gastrointestinal: Yes (S/P CHOLECYSTECTOMY) Gall Bladder Disease Musculoskeletal: Yes (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 ) Back Injury Endocrine: No HEENT: Yes (S/P BMT'S) Chronic Ear Infection Cancer: No Psychosocial: Yes (OCD, GENERALIZED ANXIETY DISORDER;"BAD ANGER PROBLEMS" ) Anxiety Integumentary: No Blood Disorders: No Family Medical History No Pertinent Family Hx Physical Exam Vital Signs Vital Signs - First Documented 12/08/20 18:50 Temp 36.1 Pulse 70 Resp 18 B/P (MAP) 125/90 (102) Pulse Ox 98 Capillary Refill : Height, Weight, BMI Height: 5'3.00" Weight: 140lbs. 0oz. 63.610211bt; 31.00 BMI Method:Actual General Appearance: WD/WN HEENT: PERRL/EOMI, normal ENT inspection, TMs normal (Bilateral TMs are opaque/scarred) Neck: non-tender, full range of motion, supple, normal inspection Cardiovascular: regular rate, rhythm Respiratory: lungs clear, normal breath sounds, no respiratory distress, no accessory muscle use Gastrointestinal: non tender, soft Extremities: normal range of motion, non-tender, normal inspection, no pedal edema Psychiatric: alert, oriented x 3, depressed affect Crainal Nerves: normal hearing, normal speech, PERRL Motor/Sensory: no motor deficit, no sensory deficit Skin: normal color, warm/dry Progress/Results/Core Measures Results/Orders My Orders Orders - OLIVE REYES MD Ibuprofen Tablet (Motrin Tablet) (12/08/20 19:00) Ondansetron Oral Dissolve Tab (Zofran (12/08/20 18:59) Medications Given in ED Current Medications Medications Dose Ordered Sig/Vick Route Start Time Stop Time Status Last Admin Dose Admin Ibuprofen 600 mg ONCE ONCE PO 12/08/20 19:00 12/08/20 19:01 DC 12/08/20 19:17 600 MG Vital Signs/I&O 12/08/20 18:50 Temp 36.1 Pulse 70 Resp 18 B/P (MAP) 125/90 (102) Pulse Ox 98 Departure Impression Primary Impression: Concussion Qualified Codes: S06.0X0A - Concussion without loss of consciousness, initial encounter Additional Impression: Minor head injury without loss of consciousness Qualified Codes: S09.90XA - Unspecified injury of head, initial encounter Disposition: HOME, SELF-CARE Condition: Stable Departure-Patient Inst. Decision time for Depature: 19:05 Referrals: NHAN LOWE MD (PCP/Family) Primary Care Physician Patient Instructions: Concussion, Adult ED Add. Discharge Instructions: Alternate Tylenol and ibuprofen over the next 24 to 48 hours as needed for headache. You can take 3 tablets of ibuprofen which is 600 mg every 6-8 hours with food as needed for headache/pain. Take 2 extra strength Tylenol. Avoid bright lights, excessive phone use, reading for the next 24 to 48 hours as these things can exacerbate your headache and nausea. Follow-up with your primary care physician next week. Return to the emergency room for any new, concerning or emergent complaints. Scripts Ondansetron (Ondansetron Odt) 4 Mg Tab.rapdis 4 MG PO Q8H PRN for nausea, #15 TAB Prov: OLIVE REYES MD 12/08/20 Work/School Note: Work Release Form Date Seen in the Emergency Department: Dec 08, 2020 Return to Work: Dec 10, 2020 OLIVE REYES MD Dec 08, 2020 18:59
[2020-12-08] MEDS ORDERED: IBUPROFEN 600 MG (MOTRIN) TAB PO ONE (19:00)
[2020-12-08] MEDS ORDERED: ONDA4TAB11 PO (19:44)
== END 2020-12-08 19:46 | disposition home or self-care (01) ==
LOC: EDUNIT# 18:43 → ER 18:46
DX: S06.0X0A Concussion without loss of consciousness, initial encounter (principal); G40.909 Epilepsy, unspecified, not intractable, without status epilepticus; Z77.22 Contact with and (suspected) exposure to environmental tobacco smoke (acute) (chronic); Z79.899 Other long term (current) drug therapy; W22.8XXA Striking against or struck by other objects, initial encounter
CPT/HCPCS: 99283

== ENCOUNTER 2020-12-10 20:59 | Emergency (ER) | payer MEDICAID ==
[~2020-12-10] VITALS: Ht 162.6 cm; Wt 68.5 kg
[2020-12-10] MEDS ORDERED: IBUPROFEN 800 MG (MOTRIN) TAB PO STA (22:18)
--- NOTE | 2020-12-10 22:24 | ED Lower Extremity ---
General Chief Complaint: Lower Extremity Stated Complaint: R KNEE INJ Nursing Triage Note: fall, hit in right knee with foot. Nursing Sepsis Screen: No Definite Risk (MILVIA GILLESPIE) History of Present Illness Date Seen by Provider: Dec 10, 2020 Time Seen by Provider: 21:10 Initial Comments 20-year-old female presents for right knee pain. She reports that she was "horsing around" with a coworker, to avoid throwing a cell phone. The acti vities did not involve anything that was required for work. She did not notice that the coworker's foot was out, she tripped over his foot falling and landing directly on her right knee. No previous history of injuries to her right knee. Onset: just prior to arrival Pain/Injury Location: right knee Method of Injury: fell (MILVIA GILLESPIE) Allergies and Home Medications Allergies Coded Allergies: promethazine (Verified Allergy, Mild, 10/25/14) Dysphoria levetiracetam (Unverified Adverse Reaction, Mild, rash, 11/08/13) sertraline (Unverified Adverse Reaction, Mild, rash, 11/08/13) Home Medications Cyclobenzaprine HCl 10 Mg Tablet, 10 MG PO TID PRN for SPASMS Prescribed by: SAMIR HERNANDEZ on 08/17/20 1207 Last Action: Last Taken Edited Ondansetron 4 Mg Tab.rapdis, 4 MG PO Q8H PRN for nausea Prescribed by: OLIVE REYES on 12/08/20 194 Last Action: Last Taken Edited Oxcarbazepine 600 Mg Tablet, 600 MG PO DAILY, (Reported) Last Action: Last Taken Edited Oxcarbazepine 600 Mg Tablet, 1,200 MG PO HS, (Reported) Last Action: Last Taken Edited Patient Home Medication List Home Medication List Reviewed: Yes (MILVIA GILLESPIE) Review of Systems Constitutional: no symptoms reported, see HPI Musculoskeletal: see HPI, joint pain (Right knee) (MILVIA GILLESPIE) All Other Systems Reviewed Negative Unless Noted: Yes (MILVIA GILLESPIE) Past Hvitacn-Wkljob-Vlsivx Hx Past Med/Social Hx: Reviewed Nursing Past Med/Soc Hx (MILVIA GILLESPIE) Patient Social History Alcohol Use: Denies Use Smoking Status: Never a Smoker 2nd Hand Smoke Exposure: Yes Recent Infectious Disease Expo: No Recent Hopitalizations: No (MILVIA GILLESPIE) Immunizations Up To Date Tetanus Booster (TDap): Less than 5yrs PED Vaccines UTD: Yes (MILVIA GILLESPIE) Seasonal Allergies Seasonal Allergies: Yes (MILVIA GILLESPIE) Past Medical History Surgeries: Yes (BMT'S) Ear Surgery, Gallbladder Respiratory: No Cardiac: No Neurological: Yes Seizure Disorder : No Last Menstrual Period: Dec 01, 2020 Reproductive Disorders: No Female Reproductive Disorders: Denies Sexually Transmitted Disease: No HIV/AIDS: No Genitourinary: Yes UTI-Chronic Gastrointestinal: Yes (S/P CHOLECYSTECTOMY) Gall Bladder Disease Musculoskeletal: Yes (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 ) Back Injury Endocrine: No HEENT: Yes (S/P BMT'S) Chronic Ear Infection Cancer: No Psychosocial: Yes (OCD, GENERALIZED ANXIETY DISORDER;"BAD ANGER PROBLEMS" ) Anxiety Integumentary: No Blood Disorders: No (MILVIA GILLESPIE) Family Medical History No Pertinent Family Hx (MILVIA GILLESPIE) Physical Exam Vital Signs Vital Signs - First Documented 12/10/20 21:06 Temp 36.8 Pulse 88 Resp 18 B/P (MAP) 109/74 (86) Pulse Ox 97 O2 Delivery Room Air (IRVIN MCLEAN MD) Vital Signs Capillary Refill : Less Than 3 Seconds (MILVIA GILLESPIE) Height, Weight, BMI Height: 5'3.00" Weight: 140lbs. 0oz. 63.252234kg; 25.00 BMI Method:Actual General Appearance: WD/WN, no apparent distress Cardiovascular: normal peripheral pulses, regular rate, rhythm Respiratory: chest non-tender, lungs clear, normal breath sounds Knees: right knee normal inspection, right knee normal range of motion, right knee no evidence of injury, right knee soft tissue tenderness (Medial aspect), right knee other (No medial or lateral instability, negative Sasha, negative anterior and posterior drawer.) Neurologic/Psychiatric: no motor/sensory deficits, alert, normal mood/affect, oriented x 3 (MILVIA GILLESPIE) Progress/Results/Core Measures Results/Orders Vital Signs/I&O 12/10/20 12/10/20 21:06 22:30 Temp 36.8 36.6 Pulse 88 78 Resp 18 18 B/P (MAP) 109/74 (86) 110/72 (86) Pulse Ox 97 99 O2 Delivery Room Air Room Air (IRVIN MCLEAN MD) Blood Pressure Mean: 86 Diagnostic Imaging Diagonstic Imaging: Xray Plain Films/CT/US/NM/MRI: knee Comments No fracture or dislocation noted, no soft tissue swelling or joint effusion present. Will be over read by radiology. Reviewed: Reviewed by Me (MILVIA GILLESPIE) Departure Impression Primary Impression: Contusion of right knee Qualified Codes: S80.01XA - Contusion of right knee, initial encounter Disposition: HOME, SELF-CARE Condition: Improved Departure-Patient Inst. Decision time for Depature: 22:00 (MILVIA GILLESPIE) Referrals: NHAN LOWE MD (PCP/Family) Primary Care Physician Patient Instructions: Knee Sprain (DC), Contusion (DC) Add. Discharge Instructions: Ice and elevate right knee. Alternate between Tylenol and ibuprofen every 4 hours for pain or swelling. Follow-up with your primary care provider if symptoms are not improving or worsening. Use Jesse wrap as needed. Gentle range of motion to the right knee. Return to the emergency department for new, urgent healthcare problem. All discharge instructions reviewed with patient and/or family. Voiced understanding. Attending physician note: I was physically present in the emergency department as attending physician during the care of this patient, but I was not directly involved in the care of this patient or involved in the decision making process during this case. (IRVIN MCLEAN MD) MILVIA GILLESPIE Dec 10, 2020 22:24 IRVIN MCLEAN MD Dec 11, 2020 04:25
[2020-12-10 22:30] VITALS: BP 110/72
--- NOTE | 2020-12-11 08:41 | Diagnostic Imaging Report ---
Indication: Right knee pain. Time of exam 9:42 PM 3 views of the right knee were obtained. Alignment is normal. Joint spaces are well maintained. Articular surfaces are smooth. No fracture, dislocation or effusion is identified. IMPRESSION: No acute abnormality is detected. Dictated by: Dictated on workstation # [id number]
== END 2020-12-10 22:27 | disposition home or self-care (01) ==
LOC: EDUNIT# 20:59 → ER 21:01
DX: S80.01XA Contusion of right knee, initial encounter (principal); G40.909 Epilepsy, unspecified, not intractable, without status epilepticus; F41.9 Anxiety disorder, unspecified; Z77.22 Contact with and (suspected) exposure to environmental tobacco smoke (acute) (chronic); Z88.8 Allergy status to other drugs, medicaments and biological substances; W03.XXXA Other fall on same level due to collision with another person, initial encounter
CPT/HCPCS: 73562

== ENCOUNTER 2021-02-23 14:24 | Emergency (ER) | payer MEDICAID ==
[~2021-02-23] VITALS: Ht 160 cm; Wt 68.5 kg
[2021-02-23] MEDS ORDERED: ONDANSETRON 4 MG (ZOFRAN) ORAL DISSOLVE TAB PO ONE (14:45)
--- NOTE | 2021-02-23 14:49 | ED Abdominal Pain ---
General Stated Complaint: ABD PAIN,NAUSEA,SHAKY Source of Information: Patient Exam Limitations: No Limitations (SIVA VELÁZQUEZ APRN) History of Present Illness Date Seen by Provider: Feb 23, 2021 Time Seen by Provider: 14:46 Initial Comments To ER with reports of abdominal pain and nausea that began yesterday. She was seen at [facility] at the onset of this and given a prescription for Zofran but she has not gotten around to taking that yet. Pain is sharp and int ermittent and involves the entire abdomen. Timing/Duration: 1-2 Days Severity/Quality: Moderate Location: Generalized Abdomen Radiation: No Radiation Activities at Onset: None (SIVA VELÁZQUEZ APRN) Allergies and Home Medications Allergies Coded Allergies: promethazine (Verified Allergy, Mild, 10/25/14) Dysphoria levetiracetam (Unverified Adverse Reaction, Mild, rash, 11/08/13) sertraline (Unverified Adverse Reaction, Mild, rash, 11/08/13) Patient Home Medication List Home Medication List Reviewed: Yes (SIVA VELÁZQUEZ APRN) Cyclobenzaprine HCl (Cyclobenzaprine HCl) 10 Mg Tablet, 10 MG PO TID PRN for SPASMS Prescribed by: SAMIR HERNANDEZ on 08/17/20 1207 Ondansetron (Ondansetron Odt) 4 Mg Tab.rapdis, 4 MG PO Q8H PRN for nausea Prescribed by: OLIVE REYES on 12/08/20 1944 Oxcarbazepine (Trileptal) 600 Mg Tablet, 600 MG PO DAILY, (Reported) Entered as Reported by: ALEX MARAVILLA on 10/24/14 2309 Oxcarbazepine (Trileptal) 600 Mg Tablet, 1,200 MG PO HS, (Reported) Entered as Reported by: ALEX MARAVILLA on 07/10/16 1507 Review of Systems Review of Systems Constitutional: see HPI EENTM: No Symptoms Reported Respiratory: No Symptoms Reported Cardiovascular: No Symptoms Reported Gastrointestinal: See HPI, Abdominal Pain Genitourinary: No Symptoms Reported Musculoskeletal: no symptoms reported Skin: no symptoms reported Psychiatric/Neurological: No Symptoms Reported Endocrine: No Symptoms Reported Hematologic/Lymphatic: No Symptoms Reported (SIVA VELÁZQUEZ APRN) Past Hjbftwr-Yhsyyj-Ddbvcx Hx Immunizations Up To Date Tetanus Booster (TDap): Less than 5yrs PED Vaccines UTD: Yes (SIVA VELÁZQUEZ APRN) Seasonal Allergies Seasonal Allergies: Yes (SIVA VELÁZQUEZ APRN) Past Medical History Surgeries: Yes (BMT'S) Ear Surgery, Gallbladder Respiratory: No Cardiac: No Neurological: Yes Seizure Disorder Reproductive Disorders: No Female Reproductive Disorders: Denies Sexually Transmitted Disease: No HIV/AIDS: No Genitourinary: Yes UTI-Chronic Gastrointestinal: Yes (S/P CHOLECYSTECTOMY) Gall Bladder Disease Musculoskeletal: Yes (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 ) Back Injury Endocrine: No HEENT: Yes (S/P BMT'S) Chronic Ear Infection Cancer: No Psychosocial: Yes (OCD, GENERALIZED ANXIETY DISORDER;"BAD ANGER PROBLEMS" ) Anxiety Integumentary: No Blood Disorders: No (SIVA VELÁZQUEZ APRN) Family Medical History No Pertinent Family Hx (SIVA VELÁZQUEZ APRN) Physical Exam Vital Signs Vital Signs - First Documented 02/23/21 14:48 Temp 35.5 Pulse 87 Resp 18 B/P (MAP) 142/95 (111) Pulse Ox 99 (IRVIN MCLEAN MD) Vital Signs Capillary Refill : (SIVA VELÁZQUEZ APRN) Height/Weight/BMI Height: 5'3.00" Weight: 140lbs. 0oz. 63.165231oh; 25.00 BMI Method:Actual General Appearance: WD/WN, no apparent distress HEENT: PERRL/EOMI, normal ENT inspection Neck: non-tender, full range of motion Respiratory: no respiratory distress, no accessory muscle use Cardiovascular: regular rate, rhythm, no murmur Gastrointestinal: normal bowel sounds, soft Extremities: normal range of motion, non-tender Neurologic/Psychiatric: alert, normal mood/affect, oriented x 3 Skin: normal color, warm/dry (SIVA VELÁZQUEZ APRN) Progress/Results/Core Measures Results/Orders Lab Results Laboratory Tests Test 02/23/21 15:00 Range/Units White Blood Count 7.2 4.3-11.0 10^3/uL Red Blood Count 4.75 3.80-5.11 10^6/uL Hemoglobin 13.7 11.5-16.0 g/dL Hematocrit 41 35-52 % Mean Corpuscular Volume 87 80-99 fL Mean Corpuscular Hemoglobin 29 25-34 pg Mean Corpuscular Hemoglobin Concent 33 32-36 g/dL Red Cell Distribution Width 12.1 10.0-14.5 % Platelet Count 281 130-400 10^3/uL Mean Platelet Volume 8.9 L 9.0-12.2 fL Immature Granulocyte % (Auto) 0 % Neutrophils (%) (Auto) 57 42-75 % Lymphocytes (%) (Auto) 33 12-44 % Monocytes (%) (Auto) 6 0-12 % Eosinophils (%) (Auto) 2 0-10 % Basophils (%) (Auto) 1 0-10 % Neutrophils # (Auto) 4.1 1.8-7.8 10^3/uL Lymphocytes # (Auto) 2.4 1.0-4.0 10^3/uL Monocytes # (Auto) 0.5 0.0-1.0 10^3/uL Eosinophils # (Auto) 0.2 0.0-0.3 10^3/uL Basophils # (Auto) 0.1 0.0-0.1 10^3/uL Immature Granulocyte # (Auto) 0.0 0.0-0.1 10^3/uL Urine Color YELLOW Urine Clarity CLEAR Urine pH 6.5 5-9 Urine Specific [place] 1.020 1.016-1.022 Urine Protein NEGATIVE NEGATIVE Urine Glucose (UA) NEGATIVE NEGATIVE Urine Ketones NEGATIVE NEGATIVE Urine Nitrite NEGATIVE NEGATIVE Urine Bilirubin NEGATIVE NEGATIVE Urine Urobilinogen 0.2 < = 1.0 MG/DL Urine Leukocyte Esterase NEGATIVE NEGATIVE Urine RBC (Auto) NEGATIVE NEGATIVE Urine RBC NONE /HPF Urine WBC 0-2 /HPF Urine Squamous Epithelial Cells RARE /HPF Urine Crystals NONE /LPF Urine Bacteria NEGATIVE /HPF Urine Casts NONE /LPF Urine Mucus NEGATIVE /LPF Urine Culture Indicated NO Sodium Level 137 135-145 MMOL/L Potassium Level 4.0 3.6-5.0 MMOL/L Chloride Level 107 98-107 MMOL/L Carbon Dioxide Level 20 L 21-32 MMOL/L Anion Gap 10 5-14 MMOL/L Blood Urea Nitrogen 13 7-18 MG/DL Creatinine 0.83 0.60-1.30 MG/DL Estimat Glomerular Filtration Rate 88 BUN/Creatinine Ratio 16 Glucose Level 103 70-105 MG/DL Calcium Level 9.5 8.5-10.1 MG/DL Corrected Calcium 9.3 8.5-10.1 MG/DL Total Bilirubin 0.2 0.1-1.0 MG/DL Aspartate Amino Transf (AST/SGOT) 21 5-34 U/L Alanine Aminotransferase (ALT/SGPT) 19 0-55 U/L Alkaline Phosphatase 80 40-136 U/L Total Protein 7.9 6.4-8.2 GM/DL Albumin 4.3 3.2-4.5 GM/DL Lipase 32 8-78 U/L Serum Test, Qualitative NEGATIVE NEGATIVE (RIVIN MCLEAN MD) Vital Signs/I&O 02/23/21 02/23/21 14:48 16:39 Temp 35.5 35.5 Pulse 87 87 Resp 18 20 B/P (MAP) 142/95 (111) 132/90 Pulse Ox 99 99 (IRVIN MCLEAN MD) Departure Impression Primary Impression: Nausea and vomiting Additional Impression: Abdominal pain Disposition: HOME, SELF-CARE Condition: Stable Departure-Patient Inst. Decision time for Depature: 14:49 (SIVA VELÁZQUEZ APRN) Referrals: NHAN LOWE MD (PCP/Family) Primary Care Physician Patient Instructions: Nausea and Vomiting, Adult Work/School Note: Work Release Form Date Seen in the Emergency Department: Feb 23, 2021 Return to Work: Feb 25, 2021 ATTENDING PHYSICIAN NOTE: I was physically present as attending physician in the emergency department during the care of this patient, but I was not directly involved in the decision making or delivery of care for this patient. (IRVIN MCLEAN MD) SIVA VELÁZQUEZ APRN Feb 23, 2021 14:49 IRVIN MCLEAN MD Feb 25, 2021 14:30
[2021-02-23 15:09] LABS: BASOPHILS # (AUTO) 0.1 10^3/uL (0.0-0.1); BASOPHILS % (AUTO) 1 % (0-10); EOSINOPHILS # (AUTO) 0.2 10^3/uL (0.0-0.3); EOSINOPHILS % (AUTO) 2 % (0-10); HEMATOCRIT 41 % (35-52); HEMOGLOBIN 13.7 g/dL (11.5-16.0); LYMPHOCYTES # (AUTO) 2.4 10^3/uL (1.0-4.0); LYMPHOCYTES % (AUTO) 33 % (12-44); MEAN CORPUSCULAR HEMOGLOBIN 29 pg (25-34); MEAN CORPUSCULAR HGB CONC 33 g/dL (32-36); MEAN CORPUSCULAR VOLUME 87 fL (80-99); MEAN PLATELET VOLUME 8.9 fL (9.0-12.2); MONOCYTES # (AUTO) 0.5 10^3/uL (0.0-1.0); MONOCYTES % (AUTO) 6 % (0-12); NEUTROPHILS # (AUTO) 4.1 10^3/uL (1.8-7.8); NEUTROPHILS % (AUTO) 57 % (42-75); PLATELET COUNT 281 10^3/uL (130-400); WHITE BLOOD COUNT 7.2 10^3/uL (4.3-11.0)
[2021-02-23 15:12] LABS: BILIRUBIN,URINE NEGATIVE (NEGATIVE); CLARITY,URINE CLEAR; COLOR,URINE YELLOW; GLUCOSE, URINE (UA) NEGATIVE (NEGATIVE); KETONES,URINE NEGATIVE (NEGATIVE); LEUKOCYTE ESTERASE ,URINE NEGATIVE (NEGATIVE); NITRITE,URINE NEGATIVE (NEGATIVE); PH,URINE 6.5 (5-9); PROTEIN,URINE NEGATIVE (NEGATIVE)
[2021-02-23 15:21] LABS: BACTERIA,URINE NEGATIVE /HPF; SQUAMOUS EPITHELIAL CELL,UR RARE /HPF; WBC,URINE 0-2 /HPF
[2021-02-23 15:32] LABS: ALBUMIN 4.3 GM/DL (3.2-4.5)
[2021-02-23 15:34] LABS: CALCIUM 9.5 MG/DL (8.5-10.1)
[2021-02-23 15:35] LABS: TOTAL PROTEIN 7.9 GM/DL (6.4-8.2)
[2021-02-23 15:37] LABS: BILIRUBIN,TOTAL 0.2 MG/DL (0.1-1.0)
[2021-02-23 15:39] LABS: CREATININE SERUM 0.83 MG/DL (0.60-1.30)
[2021-02-23] MEDS ORDERED: HOLD METFORMIN - RECEIVED CONTRAST 20 ML VIAL IV SCH (16:00)
[2021-02-23] MEDS ORDERED: IOHEXOL 350 MG/ML 100 ML (OMNIPAQUE 350) VIAL IV ONE (16:00)
[2021-02-23] MEDS ORDERED: NS 100 ML (IVPB) BAG IV ONE (16:00)
--- NOTE | 2021-02-23 16:33 | Diagnostic Imaging Report ---
PROCEDURE: CT abdomen and pelvis with contrast. TECHNIQUE: Multiple contiguous axial images were obtained through the abdomen and pelvis after administration of intravenous contrast. Auto Exposure Controls were utilized during the CT exam to meet ALARA standards for radiation dose reduction. All CT scans use one or more of the following dose optimizing techniques: automated exposure control, MA and/or KvP adjustment based on patient size and exam type or iterative reconstruction. INDICATION: Abdominal pain. COMPARISON: CT abdomen and pelvis 02/23/2021. FINDINGS: The lung bases are clear without evidence of infiltrate or effusion. There is no pericardial collection. The liver demonstrates no evidence of a focal intrahepatic abnormality. Patient is status post cholecystectomy. There is no abnormal biliary dilatation. The portal veins are patent. Pancreas is unremarkable without adjacent fluid or fat stranding. The spleen is normal in size. There is no adrenal mass. The kidneys enhance normally and appear nonobstructed. The stomach is nondistended. The duodenal sweep is appropriately positioned. There is no finding of abnormal small bowel dilation or bowel thickening. The colon is also decompressed. There is a large degree of stool present throughout the colon. The appendix is visualized and is normal. There is no appendicitis. Urinary bladder, uterus and adnexal regions are unremarkable. There are no pathologically enlarged abdominal or pelvic lymph nodes. The aorta is unremarkable. There is no acute or suspicious osseous abnormality. IMPRESSION: 1. No CT evidence of an acute inflammatory or obstructive process within the abdomen or pelvis. 2. Large degree of stool within the colon suggesting constipation. There is no finding of bowel obstruction. 3. There is no appendicitis or free fluid. 4. The kidneys are nonobstructed. 5. Prior cholecystectomy. Dictated by: Dictated on workstation # [id number]
[2021-02-23 16:39] VITALS: BP 132/90
== END 2021-02-23 16:39 | disposition home or self-care (01) ==
LOC: EDUNIT# 14:24 → ER 14:26
DX: R11.2 Nausea with vomiting, unspecified (principal); R10.84 Generalized abdominal pain; G40.909 Epilepsy, unspecified, not intractable, without status epilepticus; Z79.899 Other long term (current) drug therapy
CPT/HCPCS: 36415; 74177; 80053; 81000; 83690; 84703; 85025

== ENCOUNTER 2021-05-18 18:12 | Emergency (ER) | payer MEDICAID ==
[~2021-05-18] VITALS: Ht 162.5 cm; Wt 68.0 kg
[~2021-05-18 18:12] MED LIST changes: +CYCL10TA25 PO; -CYCL10TA9 PO
--- NOTE | 2021-05-18 18:33 | ED Abdominal Pain ---
General Chief Complaint: Abdominal/GI Problems Stated Complaint: LOW RIGH SIDE PAIN, NAUSEA Source of Information: Patient Exam Limitations: No Limitations History of Present Illness Date Seen by Provider: May 18, 2021 Time Seen by Provider: 18:32 Initial Comments Patient is a 20-year-old female who presents ED with right lower quadrant abdominal pain. Acute onset around 5:30 PM described as sharp without radiation. She reports diarrhea over the past 2 days more than 10+ episodes without any mucus or blood. Reports nausea without vomiting. History of cholecystectomy. Finished her menstrual cycle this past Wednesday. Denies of any dysuria, increased urine frequency, fever, chest pain, shortness of breath. She rates pain 3 out of 10 at this time. Allergies and Home Medications Allergies Coded Allergies: promethazine (Verified Allergy, Mild, 10/25/14) Dysphoria levetiracetam (Unverified Adverse Reaction, Mild, rash, 11/08/13) sertraline (Unverified Adverse Reaction, Mild, rash, 11/08/13) Patient Home Medication List Home Medication List Reviewed: Yes Cyclobenzaprine HCl (Cyclobenzaprine HCl) 10 Mg Tablet, 10 MG PO TID PRN for SPASMS Prescribed by: SAMIR HERNANDEZ on 08/17/20 1207 Ondansetron (Ondansetron Odt) 4 Mg Tab.rapdis, 4 MG PO Q8H PRN for nausea Prescribed by: OLIVE REYES on 12/08/201943 Ondansetron (Ondansetron Odt) 4 Mg Tab.rapdis, 4 MG PO TID PRN for NAUSEA/VOMITING-1ST LINE Prescribed by: QASIM BRUNO on 05/18/21 194 Oxcarbazepine (Trileptal) 600 Mg Tablet, 600 MG PO DAILY, (Reported) Entered as Reported by: ALEX MARAVILLA on 10/24/14 2309 Oxcarbazepine (Trileptal) 600 Mg Tablet, 1,200 MG PO HS, (Reported) Entered as Reported by: ALEX MARAVILLA on 07/10/16 1507 Review of Systems Review of Systems Constitutional: No chills, No dizziness, No fever, No malaise EENTM: No Eye Pain Respiratory: Denies Cough, Denies Shortness of Air Gastrointestinal: Abdominal Pain; Denies Constipated; Diarrhea, Nausea; Denies Vomiting Genitourinary: Denies Burning, Denies Discharge, Denies Drainage, Denies Frequency Musculoskeletal: No back pain, No joint pain, No joint swelling Skin: No change in color, No change in hair/nails, No dryness Psychiatric/Neurological: Denies Anxiety, Denies Depressed All Other Systems Reviewed Negative Unless Noted: Yes Past Glkgcac-Napvgv-Sciuip Hx Immunizations Up To Date Tetanus Booster (TDap): Less than 5yrs PED Vaccines UTD: Yes First/Initial COVID19 Vaccinat: NOV 05 2020 Second COVID19 Vaccination Ayaan: DECEMBER 03 2020 Seasonal Allergies Seasonal Allergies: Yes Past Medical History Surgery/Hospitalization HX: SX: GALLBLADDER PMH: DEPRESSION, BIPOLAR, SEIZURES Surgeries: Yes (BMT'S) Ear Surgery, Gallbladder Respiratory: No Cardiac: No Neurological: Yes Seizure Disorder Reproductive Disorders: No Female Reproductive Disorders: Denies Sexually Transmitted Disease: No HIV/AIDS: No Genitourinary: Yes UTI-Chronic Gastrointestinal: Yes (S/P CHOLECYSTECTOMY) Gall Bladder Disease Musculoskeletal: Yes (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 ) Back Injury Endocrine: No HEENT: Yes (S/P BMT'S) Chronic Ear Infection Cancer: No Psychosocial: Yes (OCD, GENERALIZED ANXIETY DISORDER;"BAD ANGER PROBLEMS" ) Anxiety Integumentary: No Blood Disorders: No Family Medical History No Pertinent Family Hx Physical Exam Vital Signs Vital Signs - First Documented 05/18/21 18:21 Temp 36.5 Pulse 80 Resp 16 B/P (MAP) 135/86 (102) Pulse Ox 95 O2 Delivery Room Air Capillary Refill : Height/Weight/BMI Height: 5'3.00" Weight: 140lbs. 0oz. 63.575242hm; 26.00 BMI Method:Actual General Appearance: WD/WN, no apparent distress HEENT: PERRL/EOMI, normal ENT inspection, TMs normal Neck: non-tender, full range of motion, supple, normal inspection Respiratory: chest non-tender, lungs clear, normal breath sounds Cardiovascular: regular rate, rhythm, no edema, no gallop Gastrointestinal: normal bowel sounds, soft, no organomegaly, no pulsatile mass, tenderness (Right lower quadrant tenderness on palpation. Normal bowel sounds throughout. No rebound or guarding) Extremities: normal range of motion, non-tender Back: normal inspection, no CVA tenderness Progress/Results/Core Measures Results/Orders Lab Results Laboratory Tests Test 05/18/21 18:27 05/18/21 18:46 Range/Units Urine Color YELLOW Urine Clarity CLEAR Urine pH 7.0 5-9 Urine Specific [place] 1.020 1.016-1.022 Urine Protein NEGATIVE NEGATIVE Urine Glucose (UA) NEGATIVE NEGATIVE Urine Ketones NEGATIVE NEGATIVE Urine Nitrite NEGATIVE NEGATIVE Urine Bilirubin NEGATIVE NEGATIVE Urine Urobilinogen 0.2 < = 1.0 MG/DL Urine Leukocyte Esterase NEGATIVE NEGATIVE Urine RBC (Auto) NEGATIVE NEGATIVE Urine RBC NONE /HPF Urine WBC NONE /HPF Urine Squamous Epithelial Cells 0-2 /HPF Urine Crystals NONE /LPF Urine Bacteria TRACE /HPF Urine Casts NONE /LPF Urine Mucus NEGATIVE /LPF Urine Culture Indicated NO White Blood Count 7.6 4.3-11.0 10^3/uL Red Blood Count 4.85 3.80-5.11 10^6/uL Hemoglobin 14.0 11.5-16.0 g/dL Hematocrit 42 35-52 % Mean Corpuscular Volume 87 80-99 fL Mean Corpuscular Hemoglobin 29 25-34 pg Mean Corpuscular Hemoglobin Concent 33 32-36 g/dL Red Cell Distribution Width 12.1 10.0-14.5 % Platelet Count 285 130-400 10^3/uL Mean Platelet Volume 9.5 9.0-12.2 fL Immature Granulocyte % (Auto) 0 % Neutrophils (%) (Auto) 60 42-75 % Lymphocytes (%) (Auto) 32 12-44 % Monocytes (%) (Auto) 5 0-12 % Eosinophils (%) (Auto) 2 0-10 % Basophils (%) (Auto) 1 0-10 % Neutrophils # (Auto) 4.6 1.8-7.8 10^3/uL Lymphocytes # (Auto) 2.4 1.0-4.0 10^3/uL Monocytes # (Auto) 0.4 0.0-1.0 10^3/uL Eosinophils # (Auto) 0.1 0.0-0.3 10^3/uL Basophils # (Auto) 0.1 0.0-0.1 10^3/uL Immature Granulocyte # (Auto) 0.0 0.0-0.1 10^3/uL Sodium Level 138 135-145 MMOL/L Potassium Level 4.4 3.6-5.0 MMOL/L Chloride Level 104 98-107 MMOL/L Carbon Dioxide Level 22 21-32 MMOL/L Anion Gap 12 5-14 MMOL/L Blood Urea Nitrogen 9 7-18 MG/DL Creatinine 0.97 0.60-1.30 MG/DL Estimat Glomerular Filtration Rate 73 BUN/Creatinine Ratio 9 Glucose Level 93 70-105 MG/DL Calcium Level 9.6 8.5-10.1 MG/DL Corrected Calcium 9.2 8.5-10.1 MG/DL Total Bilirubin 0.2 0.1-1.0 MG/DL Aspartate Amino Transf (AST/SGOT) 20 5-34 U/L Alanine Aminotransferase (ALT/SGPT) 15 0-55 U/L Alkaline Phosphatase 73 40-136 U/L Total Protein 8.0 6.4-8.2 GM/DL Albumin 4.5 3.2-4.5 GM/DL Lipase 35 8-78 U/L Serum Test, Qualitative NEGATIVE NEGATIVE My Orders Orders - DOUG GORE Cbc With Automated Diff (05/18/21 18:31) Comprehensive Metabolic Panel (05/18/21 18:31) Lipase (05/18/21 18:31) Ua Culture If Indicated (05/18/21 18:31) Hcg,Qualitative Serum (05/18/21 18:31) Ketorolac Injection (Toradol Injection) (05/18/21 18:45) Ondansetron Injection (Zofran Injectio (05/18/21 18:45) Ct Abdomen/Pelvis W (05/18/21 19:10) Iohexol Injection (Omnipaque 350 Mg/Ml 1 (05/18/21 19:15) Received Contrast (Hold Metformin- Contr (05/18/21 19:15) Ns (Ivpb) (Sodium Chloride 0.9% Ivpb Bag (05/18/21 19:15) Medications Given in ED Current Medications Medications Dose Ordered Sig/Vick Route Start Time Stop Time Status Last Admin Dose Admin Iohexol 100 ml ONCE ONCE IV 05/18/21 19:15 05/18/21 19:16 DC 05/18/21 19:29 85 ML Ketorolac Tromethamine 30 mg ONCE ONCE IVP 05/18/21 18:45 05/18/21 18:46 DC 05/18/21 18:44 30 MG Ondansetron HCl 4 mg ONCE ONCE IVP 05/18/21 18:45 05/18/21 18:46 DC 05/18/21 18:44 4 MG Sodium Chloride 100 ml ONCE ONCE IV 05/18/21 19:15 05/18/21 19:16 DC 05/18/21 19:29 80 ML Vital Signs/I&O 05/18/21 05/18/21 18:21 19:53 Temp 36.5 36.5 Pulse 80 80 Resp 16 18 B/P (MAP) 135/86 (102) 114/79 Pulse Ox 95 99 O2 Delivery Room Air Room Air Departure Communication (Admissions) Patient appears well nontoxic. Afebrile. Lab work otherwise unremarkable. Urinalysis without strong evidence infection or hematuria. Finish her menstrual cycle this last Wednesday. She does have right lower quadrant tenderness. Negative Rovsing and psoas sign. Discussed with patient this does not appear to be surgical. However she continued having pain and was given dose of pain medication and Zofran. Patient requesting further evaluation. CT scan of the abdomen pelvis negative for acute abnormality. No vaginal discharge, vaginal bleeding at this time. Not concern for sexual transmitted factions. Pain contr olled here in the ED. Discussed all results with patient. Recommend outpatient follow-up. If any worsening symptoms return back to ED for further evaluation. Will discharge with nausea medication. Continue importance of hydration. Impression Primary Impression: Abdominal pain Disposition: 01 HOME, SELF-CARE Condition: Improved Departure-Patient Inst. Decision time for Depature: 19:45 Referrals: NHAN LOWE MD (PCP/Family) Primary Care Physician Patient Instructions: Diarrhea in Adolescents and Adults Scripts Ondansetron (Ondansetron Odt) 4 Mg Tab.rapdis 4 MG PO TID PRN for NAUSEA/VOMITING-1ST LINE for 3 Days, #6 TAB Prov: DOUG GORE 05/18/21 DOUG GORE May 18, 2021 18:33
[2021-05-18] MEDS ORDERED: KETOROLAC 30 MG/ML VIAL IVP ONE (18:45)
[2021-05-18] MEDS ORDERED: ONDANSETRON 4 MG/2 ML (SDV) Z0FRAN IVP ONE (18:45)
[2021-05-18 18:53] LABS: BASOPHILS # (AUTO) 0.1 10^3/uL (0.0-0.1); BASOPHILS % (AUTO) 1 % (0-10); EOSINOPHILS # (AUTO) 0.1 10^3/uL (0.0-0.3); EOSINOPHILS % (AUTO) 2 % (0-10); HEMATOCRIT 42 % (35-52); LYMPHOCYTES # (AUTO) 2.4 10^3/uL (1.0-4.0); LYMPHOCYTES % (AUTO) 32 % (12-44); MEAN CORPUSCULAR HEMOGLOBIN 29 pg (25-34); MEAN CORPUSCULAR HGB CONC 33 g/dL (32-36); MEAN CORPUSCULAR VOLUME 87 fL (80-99); MEAN PLATELET VOLUME 9.5 fL (9.0-12.2); MONOCYTES # (AUTO) 0.4 10^3/uL (0.0-1.0); MONOCYTES % (AUTO) 5 % (0-12); NEUTROPHILS # (AUTO) 4.6 10^3/uL (1.8-7.8); NEUTROPHILS % (AUTO) 60 % (42-75); PLATELET COUNT 285 10^3/uL (130-400); WHITE BLOOD COUNT 7.6 10^3/uL (4.3-11.0)
[2021-05-18 18:57] LABS: BILIRUBIN,URINE NEGATIVE (NEGATIVE); CLARITY,URINE CLEAR; COLOR,URINE YELLOW; GLUCOSE, URINE (UA) NEGATIVE (NEGATIVE); KETONES,URINE NEGATIVE (NEGATIVE); LEUKOCYTE ESTERASE ,URINE NEGATIVE (NEGATIVE); NITRITE,URINE NEGATIVE (NEGATIVE); PROTEIN,URINE NEGATIVE (NEGATIVE)
[2021-05-18 19:03] LABS: ALBUMIN 4.5 GM/DL (3.2-4.5); POTASSIUM 4.4 MMOL/L (3.6-5.0)
[2021-05-18 19:04] LABS: CALCIUM 9.6 MG/DL (8.5-10.1)
[2021-05-18 19:06] LABS: BACTERIA,URINE TRACE /HPF; SQUAMOUS EPITHELIAL CELL,UR 0-2 /HPF
[2021-05-18 19:07] LABS: BILIRUBIN,TOTAL 0.2 MG/DL (0.1-1.0)
[2021-05-18 19:09] LABS: CREATININE SERUM 0.97 MG/DL (0.60-1.30)
[2021-05-18] MEDS ORDERED: NS 100 ML (IVPB) BAG IV ONE (19:15)
[2021-05-18] MEDS ORDERED: IOHEXOL 350 MG/ML 100 ML (OMNIPAQUE 350) VIAL IV ONE (19:15)
[2021-05-18] MEDS ORDERED: HOLD METFORMIN - RECEIVED CONTRAST 20 ML VIAL IV SCH (19:15)
--- NOTE | 2021-05-18 19:37 | Diagnostic Imaging Report ---
PROCEDURE: CT abdomen and pelvis with contrast. TECHNIQUE: Multiple contiguous axial images were obtained through the abdomen and pelvis after administration of intravenous contrast. Auto Exposure Controls were utilized during the CT exam to meet ALARA standards for radiation dose reduction. All CT scans use one or more of the following dose optimizing techniques: automated exposure control, MA and/or KvP adjustment based on patient size and exam type or iterative reconstruction. INDICATION: Right lower quadrant abdominal pain. The lung bases are clear. Liver appears normal. Gallbladder is surgically absent. Pancreas is normal. Spleen is not enlarged. Adrenals are normal. Kidneys appear normal. Small bowel is not dilated. Appendix is normal. Colon appears normal. Uterus appears normal. Adnexa appear normal. Urinary bladder is normal. There is no intraperitoneal free air or free fluid. IMPRESSION: Unremarkable CT abdomen and pelvis. Dictated by: Dictated on workstation # [id number]
[2021-05-18] MEDS ORDERED: ONDA4TAB11 PO (19:46)
[2021-05-18 19:53] VITALS: BP 114/79
== END 2021-05-18 19:54 | disposition home or self-care (01) ==
LOC: EDUNIT# 18:12 → ER 18:14
DX: R10.31 Right lower quadrant pain (principal); G40.909 Epilepsy, unspecified, not intractable, without status epilepticus; Z90.49 Acquired absence of other specified parts of digestive tract; Z79.899 Other long term (current) drug therapy
CPT/HCPCS: 36415; 74177; 80053; 81000; 83690; 84703; 85025

== ENCOUNTER 2021-06-17 16:29 | Emergency (ER) | payer MEDICAID ==
[~2021-06-17] VITALS: Ht 162.5 cm; Wt 68.0 kg
[2021-06-17] MEDS ORDERED: PANTOPRAZOLE 40 MG (PROTONIX) VIAL IV ONE (18:15)
[2021-06-17] MEDS ORDERED: ONDANSETRON 4 MG/2 ML (SDV) Z0FRAN IVP ONE (18:15)
[2021-06-17] MEDS ORDERED: LACTATED RINGERS 1,000 ML IV ONE (18:15)
[2021-06-17 18:27] LABS: BILIRUBIN,URINE NEGATIVE (NEGATIVE); CLARITY,URINE CLEAR; COLOR,URINE YELLOW; GLUCOSE, URINE (UA) NEGATIVE (NEGATIVE); KETONES,URINE NEGATIVE (NEGATIVE); LEUKOCYTE ESTERASE ,URINE NEGATIVE (NEGATIVE); NITRITE,URINE NEGATIVE (NEGATIVE); PH,URINE 7.5 (5-9); PROTEIN,URINE NEGATIVE (NEGATIVE)
[2021-06-17 18:33] LABS: BACTERIA,URINE FEW /HPF; SQUAMOUS EPITHELIAL CELL,UR 0-2 /HPF
--- NOTE | 2021-06-17 18:36 | ED GI ---
General Chief Complaint: Abdominal/GI Problems Stated Complaint: N/V Nursing Triage Note: PT AMB TO TRIAGE WITH COMPLAINT OF INTERMITTENT N/V. Source of Information: Patient History of Present Illness Date Seen by Provider: Jun 17, 2021 Time Seen by Provider: 18:00 Initial Comments PT ARRIVES VIA POV FROM HOME C/O ONGOING NAUSEA FOR A COUPLE OF DAYS STATES "I'M NOT REALLY VOMITING" NO DIARRHEA NO ABDOMINAL PAIN NO URINARY SYMPTOMS NO FEVER ATE PIZZA TODAY AT 1300 PT STATES "I NEVER EAT MUCH OF ANYTHING BECAUSE I'M LACTOSE INTOLERANT AND GLUTEN SENSITIVE" NO KNOWN SICK CONTACTS NO MEDICATION CHANGES HAS NOT TAKEN ANYTHING FOR SYMPTOMS PT HAS HAD A MULTITUDE OF ER VISITS, VARIOUS COMPLAINTS, BUT MANY FOR THIS SAME COMPLAINT PT HAS HAD PRIOR CHOLECYSTECTOMY LMP--06/07/21. NO CONTROL. PCP: ANA ZIMMERMAN--WAS SEEING DR. LOWE UNTIL SHE LEFT THE PRACTICE Allergies and Home Medications Allergies Coded Allergies: promethazine (Verified Allergy, Mild, 10/25/14) Dysphoria levetiracetam (Unverified Adverse Reaction, Mild, rash, 11/08/13) sertraline (Unverified Adverse Reaction, Mild, rash, 11/08/13) Patient Home Medication List Home Medication List Reviewed: Yes Cyclobenzaprine HCl (Cyclobenzaprine HCl) 10 Mg Tablet, 10 MG PO TID PRN for SPASMS Prescribed by: SAMIR HERNANDEZ on 08/17/20 1207 Ondansetron (Ondansetron Odt) 4 Mg Tab.rapdis, 4 MG PO Q8H PRN for nausea Prescribed by: OLIVE REYES on 12/08/20 194 Ondansetron (Ondansetron Odt) 4 Mg Tab.rapdis, 4 MG PO TID PRN for NAUSEA/VOMITING-1ST LINE Prescribed by: QASIM BRUNO on 05/18/21 194 Oxcarbazepine (Trileptal) 600 Mg Tablet, 600 MG PO DAILY, (Reported) Entered as Reported by: ALEX MARAVILLA on 10/24/14 2309 Oxcarbazepine (Trileptal) 600 Mg Tablet, 1,200 MG PO HS, (Reported) Entered as Reported by: ALEX MARAVILLA on 07/10/16 1507 Review of Systems Review of Systems Constitutional: no symptoms reported Respiratory: No Symptoms Reported Cardiovascular: No Symptoms Reported Gastrointestinal: See HPI; Denies Constipated, Denies Diarrhea; Nausea Genitourinary: No Symptoms Reported Musculoskeletal: no symptoms reported Skin: no symptoms reported Psychiatric/Neurological: No Symptoms Reported Endocrine: No Symptoms Reported Hematologic/Lymphatic: No Symptoms Reported Past Hwagbxv-Zpufso-Izsvfy Hx Patient Social History Tobacco Use?: No Use of E-Cig and/or Vaping dev: No Substance use?: No Alcohol Use?: Yes Alcohol Frequency: Once in a while Pt feels they are or have been: No Immunizations Up To Date Tetanus Booster (TDap): Less than 5yrs PED Vaccines UTD: Yes First/Initial COVID19 Vaccinat: NOV 05 2020 Second COVID19 Vaccination Ayaan: DECEMBER 03 2020 Third COVID19 Vaccination Date: NOV 05 2020 Seasonal Allergies Seasonal Allergies: Yes Past Medical History Surgery/Hospitalization HX: SX: GALLBLADDER PMH: DEPRESSION, BIPOLAR, SEIZURES Surgeries: Yes (BMT'S) Ear Surgery, Gallbladder Respiratory: No Cardiac: No Neurological: Yes Seizure Disorder Reproductive Disorders: No Female Reproductive Disorders: Denies Sexually Transmitted Disease: No HIV/AIDS: No Genitourinary: Yes UTI-Chronic Gastrointestinal: Yes (S/P CHOLECYSTECTOMY) Gall Bladder Disease Musculoskeletal: Yes (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 ) Back Injury Endocrine: No HEENT: Yes (S/P BMT'S) Chronic Ear Infection Cancer: No Psychosocial: Yes (OCD, GENERALIZED ANXIETY DISORDER;"BAD ANGER PROBLEMS" ) Anxiety, Depression Integumentary: No Blood Disorders: No Family Medical History No Pertinent Family Hx Physical Exam Vital Signs Vital Signs - First Documented 06/17/21 17:08 Temp 36.9 Pulse 112 Resp 22 B/P (MAP) 117/57 (77) Pulse Ox 94 O2 Delivery Room Air Capillary Refill : Less Than 3 Seconds Height/Weight/BMI Height: 5'3.00" Weight: 140lbs. 0oz. [id number]; 25.00 BMI Method:Actual General Appearance: WD/WN, no apparent distress, other (SITTING UP, CONSTANTLY TEXTING/PLAYING ON PHONE; DOES NOT APPEAR ILL OR TO BE IN ANY DISCOMFORT OR DI STRESS) HEENT: No scleral icterus (R), No scleral icterus (L), No pale conjunctivae (R), No pale conjunctivae (L) Neck: normal inspection Respiratory: normal breath sounds, no respiratory distress, no accessory muscle use Cardiovascular: regular rate, rhythm, no murmur Gastrointestinal: normal bowel sounds, non tender, soft, no organomegaly Extremities: normal inspection Back: normal inspection, no CVA tenderness 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, no motor/sensory deficits, alert, normal mood/affect, oriented x 3 Skin: normal color, warm/dry, tattoos/piercings Progress/Results/Core Measures Results/Orders Lab Results Laboratory Tests Test 06/17/21 17:15 06/17/21 18:30 Range/Units Urine Color YELLOW Urine Clarity CLEAR Urine pH 7.5 5-9 Urine Specific [place] 1.020 1.016-1.022 Urine Protein NEGATIVE NEGATIVE Urine Glucose (UA) NEGATIVE NEGATIVE Urine Ketones NEGATIVE NEGATIVE Urine Nitrite NEGATIVE NEGATIVE Urine Bilirubin NEGATIVE NEGATIVE Urine Urobilinogen 0.2 < = 1.0 MG/DL Urine Leukocyte Esterase NEGATIVE NEGATIVE Urine RBC (Auto) NEGATIVE NEGATIVE Urine RBC NONE /HPF Urine WBC NONE /HPF Urine Squamous Epithelial Cells 0-2 /HPF Urine Renal Epithelial Cells NONE /HPF Urine Crystals NONE /LPF Urine Bacteria FEW H /HPF Urine Casts NONE /LPF Urine Mucus NEGATIVE /LPF Urine Culture Indicated NO Urine Opiates Screen NEGATIVE NEGATIVE Urine Oxycodone Screen NEGATIVE NEGATIVE Urine Methadone Screen NEGATIVE NEGATIVE Urine Propoxyphene Screen NEGATIVE NEGATIVE Urine Barbiturates Screen NEGATIVE NEGATIVE Ur Tricyclic Antidepressants Screen NEGATIVE NEGATIVE Urine Phencyclidine Screen NEGATIVE NEGATIVE Urine Amphetamines Screen NEGATIVE NEGATIVE Urine Methamphetamines Screen NEGATIVE NEGATIVE Urine Benzodiazepines Screen NEGATIVE NEGATIVE Urine Cocaine Screen NEGATIVE NEGATIVE Urine Cannabinoids Screen NEGATIVE NEGATIVE White Blood Count 7.2 4.3-11.0 10^3/uL Red Blood Count 4.88 3.80-5.11 10^6/uL Hemoglobin 14.1 11.5-16.0 g/dL Hematocrit 43 35-52 % Mean Corpuscular Volume 88 80-99 fL Mean Corpuscular Hemoglobin 29 25-34 pg Mean Corpuscular Hemoglobin Concent 33 32-36 g/dL Red Cell Distribution Width 12.2 10.0-14.5 % Platelet Count 277 130-400 10^3/uL Mean Platelet Volume 9.3 9.0-12.2 fL Immature Granulocyte % (Auto) 0 % Neutrophils (%) (Auto) 58 42-75 % Lymphocytes (%) (Auto) 34 12-44 % Monocytes (%) (Auto) 5 0-12 % Eosinophils (%) (Auto) 2 0-10 % Basophils (%) (Auto) 1 0-10 % Neutrophils # (Auto) 4.1 1.8-7.8 10^3/uL Lymphocytes # (Auto) 2.4 1.0-4.0 10^3/uL Monocytes # (Auto) 0.4 0.0-1.0 10^3/uL Eosinophils # (Auto) 0.2 0.0-0.3 10^3/uL Basophils # (Auto) 0.1 0.0-0.1 10^3/uL Immature Granulocyte # (Auto) 0.0 0.0-0.1 10^3/uL Sodium Level 137 135-145 MMOL/L Potassium Level 4.2 3.6-5.0 MMOL/L Chloride Level 104 98-107 MMOL/L Carbon Dioxide Level 25 21-32 MMOL/L Anion Gap 8 5-14 MMOL/L Blood Urea Nitrogen 9 7-18 MG/DL Creatinine 0.70 0.60-1.30 MG/DL Estimat Glomerular Filtration Rate 107 BUN/Creatinine Ratio 13 Glucose Level 93 70-105 MG/DL Calcium Level 9.3 8.5-10.1 MG/DL Corrected Calcium 9.0 8.5-10.1 MG/DL Total Bilirubin 0.3 0.1-1.0 MG/DL Aspartate Amino Transf (AST/SGOT) 17 5-34 U/L Alanine Aminotransferase (ALT/SGPT) 13 0-55 U/L Alkaline Phosphatase 74 40-136 U/L Total Protein 7.9 6.4-8.2 GM/DL Albumin 4.4 3.2-4.5 GM/DL Amylase Level 108 25-125 U/L Lipase 24 8-78 U/L Serum Test, Qualitative NEGATIVE NEGATIVE Serum Alcohol < 10 <10 MG/DL My Orders Orders - VANESSA EISENBERG DO Ed Iv/Invasive Line Start (06/17/21 18:06) Amylase (06/17/21 18:06) Cbc With Automated Diff (06/17/21 18:06) Comprehensive Metabolic Panel (06/17/21 18:06) Drug Screen Stat (Urine) (06/17/21 18:06) Hcg,Qualitative Serum (06/17/21 18:06) Lipase (06/17/21 18:06) Ua Culture If Indicated (06/17/21 18:06) Ed Iv/Invasive Line Start (06/17/21 18:06) Lactated Ringers (Lr 1000 Ml Iv Solution (06/17/21 18:15) Ondansetron Injection (Zofran Injectio (06/17/21 18:15) Pantoprazole Injection (Protonix Injecti (06/17/21 18:15) Alcohol (06/17/21 18:10) Medications Given in ED Current Medications Medications Dose Ordered Sig/Vick Route Start Time Stop Time Status Last Admin Dose Admin Lactated Ringer's 1,000 ml @ 0 mls/hr Q0M ONCE IV 06/17/21 18:15 06/17/21 18:16 DC 06/17/21 18:23 0 MLS/HR Ondansetron HCl 4 mg ONCE ONCE IVP 06/17/21 18:15 06/17/21 18:16 DC 06/17/21 18:23 4 MG Pantoprazole 40 mg ONCE ONCE IV 06/17/21 18:15 06/17/21 18:16 DC 06/17/21 18:23 40 MG Vital Signs/I&O 06/17/21 17:08 Temp 36.9 Pulse 112 Resp 22 B/P (MAP) 117/57 (77) Pulse Ox 94 O2 Delivery Room Air Blood Pressure Mean: 77 Progress Progress Note : Progress Note GIVEN IV FLUIDS AND ZOFRAN WITH RESOLUTION OF SYMPTOMS Departure Impression Primary Impression: Nausea alone Disposition: 01 HOME, SELF-CARE Condition: Improved Departure-Patient Inst. Decision time for Depature: 19:10 Referrals: [facility] (PCP/Family) Primary Care Physician Patient Instructions: Nausea and Vomiting, Adult ED Add. Discharge Instructions: CLEAR LIQUIDS--WATER, BROTH,JELLO, GATORADE TOMORROW IF YOU ARE BETTER, ADD BRATS DIET TO CLEAR LIQUIDS FOLLOW UP WITH [facility] IF SYMPTOMS PERSIST All discharge instructions reviewed with patient and/or family. Voiced understanding. Scripts Pantoprazole Sodium (Protonix) 40 Mg Tablet.dr 40 MG PO DAILY, #15 TAB Prov: VANESSA EISENBERG DO 06/17/21 Ondansetron (Ondansetron Odt) 4 Mg Tab.rapdis 4 MG PO Q4H for Nausea/Vomiting, #10 TAB Prov: VANESSA EISENBERG DO 06/17/21 VANESSA EISENBERG DO Jun 17, 2021 18:36
[2021-06-17 18:37] LABS: BASOPHILS # (AUTO) 0.1 10^3/uL (0.0-0.1); BASOPHILS % (AUTO) 1 % (0-10); EOSINOPHILS # (AUTO) 0.2 10^3/uL (0.0-0.3); EOSINOPHILS % (AUTO) 2 % (0-10); HEMATOCRIT 43 % (35-52); HEMOGLOBIN 14.1 g/dL (11.5-16.0); LYMPHOCYTES # (AUTO) 2.4 10^3/uL (1.0-4.0); LYMPHOCYTES % (AUTO) 34 % (12-44); MEAN CORPUSCULAR HEMOGLOBIN 29 pg (25-34); MEAN CORPUSCULAR HGB CONC 33 g/dL (32-36); MEAN CORPUSCULAR VOLUME 88 fL (80-99); MEAN PLATELET VOLUME 9.3 fL (9.0-12.2); MONOCYTES # (AUTO) 0.4 10^3/uL (0.0-1.0); MONOCYTES % (AUTO) 5 % (0-12); NEUTROPHILS # (AUTO) 4.1 10^3/uL (1.8-7.8); NEUTROPHILS % (AUTO) 58 % (42-75); PLATELET COUNT 277 10^3/uL (130-400); WHITE BLOOD COUNT 7.2 10^3/uL (4.3-11.0)
[2021-06-17 18:38] LABS: AMPHETAMINE SCREEN, URINE NEGATIVE (NEGATIVE); BARBITURATE SCREEN URINE NEGATIVE (NEGATIVE); BENZODIAZEPINES SCREEN URINE NEGATIVE (NEGATIVE); CANNABINOID SCREEN, URINE NEGATIVE (NEGATIVE); COCAINE SCREEN URINE NEGATIVE (NEGATIVE); METHADONE STAT NEGATIVE (NEGATIVE); METHAMPHETAMINE SCREEN URINE S NEGATIVE (NEGATIVE); OPIATE SCREEN URINE NEGATIVE (NEGATIVE); OXYCODONE STAT NEGATIVE (NEGATIVE); PROPOXYPHENE STAT NEGATIVE (NEGATIVE); TRICYCLIC ANTIDEPRESSANTS SCRE NEGATIVE (NEGATIVE)
[2021-06-17 18:47] LABS: ALBUMIN 4.4 GM/DL (3.2-4.5); CHLORIDE 104 MMOL/L (98-107); POTASSIUM 4.2 MMOL/L (3.6-5.0); SODIUM 137 MMOL/L (135-145)
[2021-06-17 18:48] LABS: AMYLASE 108 U/L (25-125); CALCIUM 9.3 MG/DL (8.5-10.1)
[2021-06-17 18:49] LABS: GLUCOSE 93 MG/DL (70-105)
[2021-06-17 18:50] LABS: CARBON DIOXIDE 25 MMOL/L (21-32); TOTAL PROTEIN 7.9 GM/DL (6.4-8.2)
[2021-06-17 18:51] LABS: BILIRUBIN,TOTAL 0.3 MG/DL (0.1-1.0)
[2021-06-17 18:53] LABS: ALKALINE PHOSPHATASE 74 U/L (40-136); GFR ESTIMATED 107
[2021-06-17 18:54] LABS: BUN/CREATININE RATIO 13
[2021-06-17 18:56] LABS: ALANINE AMINOTRANSFERASE 13 U/L (0-55)
[2021-06-17 18:57] LABS: LIPASE 24 U/L (8-78)
[2021-06-17] MEDS ORDERED: RX-ONDANSETRON 4 MG ODT (ZOFRAN) PPK #4 PO STA (19:13)
[2021-06-17] MEDS ORDERED: PANT40TA2 PO (19:16)
[2021-06-17] MEDS ORDERED: ONDA4TAB11 PO (19:16)
[2021-06-17 19:24] VITALS: BP 118/62
== END 2021-06-17 19:24 | disposition home or self-care (01) ==
LOC: EDUNIT# 16:29 → ER 16:30
DX: R11.0 Nausea (principal); G40.909 Epilepsy, unspecified, not intractable, without status epilepticus; Z90.49 Acquired absence of other specified parts of digestive tract; Z88.8 Allergy status to other drugs, medicaments and biological substances; Z79.899 Other long term (current) drug therapy; Z32.02 Encounter for pregnancy test, result negative
CPT/HCPCS: 80053; 80306; 81000; 82150; 83690; 84703; 85025; 99284; G0480; 36415; 80320

== ENCOUNTER 2022-02-02 17:25 | Emergency (ER) | payer MEDICAID ==
[~2022-02-02] VITALS: Ht 160 cm; Wt 76.2 kg
[~2022-02-02 17:25] MED LIST changes: -BALO40TA PO; +BALO40TA4 PO; +PANT40TA2 PO
[2022-02-02] MEDS ORDERED: NS IV 1000 ML 1,000 ML ONE (17:41)
[2022-02-02 17:54] LABS: BASOPHILS # (AUTO) 0.1 10^3/uL (0.0-0.1); BASOPHILS % (AUTO) 1 % (0-10); EOSINOPHILS # (AUTO) 0.1 10^3/uL (0.0-0.3); EOSINOPHILS % (AUTO) 1 % (0-10); HEMATOCRIT 38 % (35-52); HEMOGLOBIN 13.2 g/dL (11.5-16.0); LYMPHOCYTES # (AUTO) 3.2 10^3/uL (1.0-4.0); LYMPHOCYTES % (AUTO) 24 % (12-44); MEAN CORPUSCULAR HEMOGLOBIN 30 pg (25-34); MEAN CORPUSCULAR HGB CONC 35 g/dL (32-36); MEAN CORPUSCULAR VOLUME 86 fL (80-99); MEAN PLATELET VOLUME 10.2 fL (9.0-12.2); MONOCYTES # (AUTO) 0.6 10^3/uL (0.0-1.0); MONOCYTES % (AUTO) 5 % (0-12); NEUTROPHILS # (AUTO) 9.5 10^3/uL (1.8-7.8); NEUTROPHILS % (AUTO) 70 % (42-75); PLATELET COUNT 236 10^3/uL (130-400); WHITE BLOOD COUNT 13.6 10^3/uL (4.3-11.0)
--- NOTE | 2022-02-02 17:56 | ED Neurological Problem ---
General Chief Complaint: Neurological Problems Stated Complaint: SVT,SEIZURES Source: patient, EMS Exam Limitations: no limitations History of Present Illness Date Seen by Provider: Feb 02, 2022 Time Seen by Provider: 17:42 Initial Comments Patient is a 21-year-old estimated due date March 09 chief complaint seizure prior to arrival. Known seizure disorder. Patient states that she gets her care in [place]. She is on antiseizure medications (trileptal) and states she took them this morning. She had a witnessed seizure, unknown duration, today EMS was called. Patient was found to have a heart rate at 195 prior to arrival with a blood pressure of 90 systolic. No postictal state was reported. Blood sugar was reported within normal limits. Patient cannot quantify how often she has seizures. She denies any recent illnesses such as fevers, chills, URI symptoms. No cough or shortness of breath. She is COVID vaccinated. She complains of injury to her right elbow where notably she has an abrasion. No joint swelling. Good ROM heart tones were assessed immediately upon arrival at 140's. Patient had vomited after having Phenergan prior to arrival per EMS and her heart rate converted from the 190s down to 130s. She is awake alert and oriented on arrival. No other complaints other than pain in the area of the blood pressure cuff to the right upper extremity and at the elbow. As her heart rate is noted to be coming down her blood pressure has come up the last one I observed was 140s over upper 80s. IV access has been established per EMS. IV fluids are running. She does state that her OB provider from [place] has said that her blood pressure has been running high. All other review of systems reviewed and negative except as stated Timing/Duration: 1 hour Associated Symptoms: other (right elbow pain) Allergies and Home Medications Allergies Coded Allergies: promethazine (Verified Allergy, Mild, 10/25/14) Dysphoria levetiracetam (Unverified Adverse Reaction, Mild, rash, 11/08/13) sertraline (Unverified Adverse Reaction, Mild, rash, 11/08/13) Patient Home Medication List Home Medication List Reviewed: Yes Cyclobenzaprine HCl (Cyclobenzaprine HCl) 10 Mg Tablet, 10 MG PO TID PRN for SPASMS Prescribed by: SAMIR HERNANDEZ on 08/17/20 1207 Ondansetron (Ondansetron Odt) 4 Mg Tab.rapdis, 4 MG PO Q8H PRN for nausea Prescribed by: OLIVE REYES on 12/08/20 194 Ondansetron (Ondansetron Odt) 4 Mg Tab.rapdis, 4 MG PO TID PRN for NAUSEA/VOMITING-1ST LINE Prescribed by: QASIM BRUNO on 05/18/21 194 Ondansetron (Ondansetron Odt) 4 Mg Tab.rapdis, 4 MG PO Q4H Prescribed by: VANESSA EISENBERG on 06/17/21 191 Oxcarbazepine (Trileptal) 600 Mg Tablet, 600 MG PO DAILY, (Reported) Entered as Reported by: ALEX MARAVILLA on 10/24/14 2309 Oxcarbazepine (Trileptal) 600 Mg Tablet, 1,200 MG PO HS, (Reported) Entered as Reported by: ALEX MARAVILLA on 07/10/16 1507 Pantoprazole Sodium (Protonix) 40 Mg Tablet.dr, 40 MG PO DAILY Prescribed by: VANESSA EISENBERG on 06/17/211915 Review of Systems Review of Systems Constitutional: see HPI Eyes: No Symptoms Reported Ears, Nose, Mouth, Throat: no symptoms reported Respiratory: no symptoms reported Cardiovascular: no symptoms reported Gastrointestinal: no symptoms reported Genitourinary: no symptoms reported : Yes Expected Date of Delivery: Mar 09, 2022 Musculoskeletal: joint pain (right elbow) Skin: other (abrasion) All Other Systems Reviewed Negative Unless Noted: Yes Past Ybdionm-Utwppz-Hbjgms Hx Immunizations Up To Date Tetanus Booster (TDap): Less than 5yrs PED Vaccines UTD: Yes First/Initial COVID19 Vaccinat: NOV 05 2020 Second COVID19 Vaccination Ayaan: DECEMBER 03 2020 Third COVID19 Vaccination Date: NOV 05 2020 Seasonal Allergies Seasonal Allergies: Yes Past Medical History Surgery/Hospitalization HX: SX: GALLBLADDER PMH: DEPRESSION, BIPOLAR, SEIZURES Surgeries: Yes (BMT'S) Ear Surgery, Gallbladder Respiratory: No Cardiac: No Neurological: Yes Seizure Disorder Reproductive Disorders: No Female Reproductive Disorders: Denies Sexually Transmitted Disease: No HIV/AIDS: No Genitourinary: Yes UTI-Chronic Gastrointestinal: Yes (S/P CHOLECYSTECTOMY) Gall Bladder Disease Musculoskeletal: Yes (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 ) Back Injury Endocrine: No HEENT: Yes (S/P BMT'S) Chronic Ear Infection Cancer: No Psychosocial: Yes (OCD, GENERALIZED ANXIETY DISORDER;"BAD ANGER PROBLEMS" ) Anxiety, Depression Integumentary: No Blood Disorders: No Family Medical History No Pertinent Family Hx Physical Exam Vital Signs Capillary Refill : Height, Weight, BMI Height: 5'3.00" Weight: 140lbs. 0oz. 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, no motor/sensory deficits, alert, normal mood/affect, oriented x 3 Cra[place] Nerves: normal hearing, normal speech, PERRL Motor/Sensory: no motor deficit, no sensory deficit, other (no clonus) Reflexes: 1+ Knee (R), 1+ Knee (L) Skin: normal color, warm/dry Progress/Results/Core Measures Results/Orders Lab Results Laboratory Tests Test 02/02/22 17:40 Range/Units White Blood Count 13.6 H 4.3-11.0 10^3/uL Red Blood Count 4.44 3.80-5.11 10^6/uL Hemoglobin 13.2 11.5-16.0 g/dL Hematocrit 38 35-52 % Mean Corpuscular Volume 86 80-99 fL Mean Corpuscular Hemoglobin 30 25-34 pg Mean Corpuscular Hemoglobin Concent 35 32-36 g/dL Red Cell Distribution Width 12.9 10.0-14.5 % Platelet Count 236 130-400 10^3/uL Mean Platelet Volume 10.2 9.0-12.2 fL Immature Granulocyte % (Auto) 1 % Neutrophils (%) (Auto) 70 42-75 % Lymphocytes (%) (Auto) 24 12-44 % Monocytes (%) (Auto) 5 0-12 % Eosinophils (%) (Auto) 1 0-10 % Basophils (%) (Auto) 1 0-10 % Neutrophils # (Auto) 9.5 H 1.8-7.8 10^3/uL Lymphocytes # (Auto) 3.2 1.0-4.0 10^3/uL Monocytes # (Auto) 0.6 0.0-1.0 10^3/uL Eosinophils # (Auto) 0.1 0.0-0.3 10^3/uL Basophils # (Auto) 0.1 0.0-0.1 10^3/uL Immature Granulocyte # (Auto) 0.1 0.0-0.1 10^3/uL My Orders Orders - OLIVE REYES MD Ns Iv 1000 Ml (Sodium Chloride 0.9%) (02/02/22 17:41) Magnesium (02/02/22 17:50) Uric Acid (02/02/22 17:50) LDH (02/02/22 17:50) Urine [place] Prot Creat W/Ratio (02/02/22 17:50) Ns Iv 1000 Ml (Sodium Chloride 0.9%) (02/02/22 18:00) Medications Given in ED Current Medications Medications Dose Ordered Sig/Vick Route Start Time Stop Time Status Last Admin Dose Admin Sodium Chloride 1,000 ml @ STK-MED ONCE .ROUTE 02/02/22 17:41 02/02/22 17:45 DC 02/02/22 17:46 999 MLS/HR Progress Progress Note : Time: 18:05 Progress Note discussed with Dr Longo - santy to send to wom[facility] services while work up is being completed Departure Communication (Admissions) Time/Spoke to Consulting Phy: 18:[address] Longo Impression Primary Impression: Seizure Additional Impressions: 8 months Tachycardia Disposition: 01 HOME, SELF-CARE Condition: Stable Departure-Patient Inst. Decision time for Depature: 18:15 Referrals: [facility] (PCP/Family) Primary Care Physician Add. Discharge Instructions: You will be going to [facility] for monitoring and further treatment this evening. OLIVE REYES MD Feb 02, 2022 17:56
[2022-02-02] MEDS ORDERED: NS IV 1000 ML 1,000 ML IV SCH (18:00)
[2022-02-02 18:12] LABS: ALBUMIN 3.6 GM/DL (3.2-4.5); POTASSIUM 4.1 MMOL/L (3.6-5.0)
[2022-02-02 18:13] LABS: CALCIUM 9.3 MG/DL (8.5-10.1)
[2022-02-02 18:15] LABS: TOTAL PROTEIN 7.2 GM/DL (6.4-8.2)
[2022-02-02 18:16] LABS: BILIRUBIN,TOTAL 0.2 MG/DL (0.1-1.0)
[2022-02-02 18:18] LABS: CREATININE SERUM 0.76 MG/DL (0.60-1.30)
[2022-02-02 18:21] LABS: MAGNESIUM 1.8 MG/DL (1.6-2.4); URIC ACID 6.1 MG/DL (2.6-7.2)
[2022-02-02 18:37] LABS: BILIRUBIN,URINE NEGATIVE (NEGATIVE); CLARITY,URINE SL CLOUDY; COLOR,URINE ORANGE; GLUCOSE, URINE (UA) NEGATIVE (NEGATIVE); KETONES,URINE NEGATIVE (NEGATIVE); LEUKOCYTE ESTERASE ,URINE 1+ (NEGATIVE); NITRITE,URINE NEGATIVE (NEGATIVE); PROTEIN,URINE 2+ (NEGATIVE)
[2022-02-02 18:51] LABS: BACTERIA,URINE MODERATE /HPF; SQUAMOUS EPITHELIAL CELL,UR 25-50 /HPF
[2022-02-02 18:59] LABS: URINE CREATININE FOR RATIO 247 MG/DL (30-125)
[2022-02-02 19:00] LABS: URINE PROTEIN FOR RATIO ONLY 180 MG/DL (6-12)
[2022-02-02 19:06] LABS: AMPHETAMINE SCREEN, URINE NEGATIVE (NEGATIVE); BARBITURATE SCREEN URINE NEGATIVE (NEGATIVE); BENZODIAZEPINES SCREEN URINE NEGATIVE (NEGATIVE); CANNABINOID SCREEN, URINE NEGATIVE (NEGATIVE); COCAINE SCREEN URINE NEGATIVE (NEGATIVE); METHADONE STAT NEGATIVE (NEGATIVE); OPIATE SCREEN URINE NEGATIVE (NEGATIVE); OXYCODONE STAT NEGATIVE (NEGATIVE); PROPOXYPHENE STAT NEGATIVE (NEGATIVE); TRICYCLIC ANTIDEPRESSANTS SCRE NEGATIVE (NEGATIVE)
[2022-02-02 19:20] VITALS: BP 91/67
== END 2022-02-02 19:30 | disposition home or self-care (01) ==
LOC: EDUNIT# 17:25 → ER 17:36
DX: O99.353 Diseases of the nervous system complicating pregnancy, third trimester (principal); G40.909 Epilepsy, unspecified, not intractable, without status epilepticus; O26.893 Other specified pregnancy related conditions, third trimester; R00.0 Tachycardia, unspecified; Z79.899 Other long term (current) drug therapy; Z3A.00 Weeks of gestation of pregnancy not specified
CPT/HCPCS: 36415; 80053; 80306; 81000; 82570; 83615; 83735; 84156; 84550; 85025; 87088; 99283

== ENCOUNTER 2022-02-02 18:13 | Outpatient (CLI) | payer MEDICAID ==
[2022-02-02 19:40] VITALS: BP 117/61
--- NOTE | 2022-02-10 11:59 | Physician Query-Final Dx ---
RICH PELAYO 02/10/22 1159: Final Diagnosis Give Final Diagnosis Please give Final Diagnosis NIESHA BLAKELY DO 02/10/22 1742: Final Diagnosis Give Final Diagnosis Patient left AMA before proper diagnosis could be established 35 week IUP Seizure brought her into ER Underwent workup for PreE/Eclampsia RICH PELAYO Feb 10, 2022 11:59 NIESHA BLAKELY DO Feb 10, 2022 17:42
== END 2022-02-02 20:09 | disposition left against medical advice (07) ==
LOC: WSo 18:13 → LDRP 18:15 → WSo 20:09
PROVIDERS: ATTEND Obstetrics & Gynecology
DX: O15.03 Eclampsia complicating pregnancy, third trimester (principal); Z3A.35 35 weeks gestation of pregnancy
CPT/HCPCS: 99212

== ENCOUNTER → 2023-01-29 | Outpatient (CLI) | payer MEDICAID | LOC: CARD 13:21 | PROVIDERS: ATTEND Family Medicine | DX: R55 Syncope and collapse (principal) | CPT/HCPCS: 93246 ==